=== PATIENT | female | born 1955 | race Caucasian/White ===

== ENCOUNTER 2024-09-20 08:30 | Outpatient (AMB) | payer MEDICARE, SELFPAY ==
--- OUTSIDE RECORDS SUMMARY | 2024-09-20 08:35 | XMS_ITS | Patient Health Record ---
Author Organization [facility] Address [address] [place] [address] Care Team Providers Care Pipe Bending Machine Operator Name Role Phone Ida Virk Primary Care Provider Benito Moses Unavailable [phone] Allergies No Known Allergies Reason For Referral No Information Medications Medication SIG (Take, Route, Frequency, Duration) Notes Start Date End Date Status Fluticasone Propionate 50 MCG/ACT Nasal; Duration: 30 Days Active Contour Test - USE TO TEST 3 TIMES DAILY In Vitro; Duration: 90 Active HumaLOG KwikPen 100 UNIT/ML Subcutaneous ; Duration: 107 Days Active Gabapentin 600 MG 2 tablet Orally Once a day Active Carvedilol 25 MG Oral; Duration: 90 Days Active Insulin Aspart FlexPen 100 UNIT/ML INJECT 12 UNITS UNDER THE SKIN THREE TIMES DAILY DIRECTED Subcutaneous; Duration: 71 Active hydroCHLOROthiazide 12.5 MG Oral; Durati on: 90 Days Active iron Active Trulicity Not-Taking Lantus SoloStar 100 UNIT/ML INJECT 68 UN ITS UNDER THE SKIN DAILY Subcutaneous; Duration: 84 Active DULoxetine HCl 30 MG TAKE 1 CAPSULE BY MOUTH DAILY FOR 360 DAYS. Oral Once a day Not-Taking Vitamin B 12 Active ZyrTEC Allergy PRN Activ e amLODIPine Besylate 5 MG Oral; Duration: 90 Days Active Atorvastatin Calcium 40 MG Oral; Duratio n: 90 Days Active Valsartan 160 MG Oral; Duration: 90 Days Active metFORMIN HCl 500 MG 1 tablet with a meal Orally Once a day Active Immunizations Vaccine Route Administration Date Status Comme nts COVID-19 Moderna Vaccine Unknown 03/25/2021 Administere d 1st 06/10/2020 2nd 07/18/2020 Influenza Unknown 12/23/2014 Administered Influenza Unknown 10/27/2015 Pending Influenza Unknown 11/19/2016 Administered Influenza Unknown 03/01/2018 Administered Influenza Unknown 11/19/2021 Administered Influenza Unknown 12/20/2022 Administered Pneumococcal Unknown 11/26/2013 Administered Social History Tobacco Use: Social History Observation Description Date Details (start date - stop date) Never Smoker NA - NA Tobacco Use/Smoking Question Answer Notes Are you a: nonsmoker Additional Findings: Tobacco Non-User Current no n-smoker Alcohol Screen Question Answer Notes Did you have a drink containing alcohol in the p ast year? No Points 0 Interpretation Negative Tobacco use other than smoking: Question Answer Notes Are you an other tobacco user? 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 to breakdown of skin (L97.521) Active confirmed Problem Polyneuropathy due to diabetes mellitus type I (905813752) Type 1 diabetes mellitus with diabetic polyneuropathy (E10.42) Active confirmed Encounters Encounter Location Date Provider Diagnosis [facility] [address] [address] 11/29/2023 Benito Guy Plan Of Treatment Pending Test Test Name Order Date X ray : Foot, left 2V 12/08/2017 X ray : Foot, right 2V 12/08/2017 [id number]-SJVFSIJ NAIL, 6 OR MORE 09/15/2017 91815-JZFDYWL NAIL, 6 OR MORE 06/30/2017 94105-TYWXNCX NAIL, 6 OR MORE 12/08/2017 08779-EDQUVQJ NAIL, 6 OR MORE 03/01/2018 74091-JBIQHDK NAIL, 6 OR MORE 04/22/2011 04493-DTVGTVH NAIL, 6 OR MORE 10/14/2011 29998-VPPAMIS NAIL, 6 OR MORE 05/04/2012 46881-WSYZCHS NAIL, 6 OR MORE 06/06/2014 96259-GNIALEA NAIL, 6 OR MORE 11/20/2014 97474-XZRTGAJ NAIL, 6 OR MORE 06/19/2015 24331-EBMIXFC NAIL, 6 OR MORE 10/27/2015 83243-UESTUBS NAIL, 6 OR MORE 01/26/2016 81479-KWONMLE NAIL, 6 OR MORE 04/26/2016 42037-LCMXQJC NAIL, 6 OR MORE 07/12/2016 26181-BSVPROH NAIL, 6 OR MORE 10/25/2016 29266-AJJYMWA NAIL, 6 OR MORE 01/17/2017 76805-LOAUKVE NAIL, 6 OR MORE 04/07/2017 00563-Jmzquqsn Plate 06/30/2017 10320-Tvwurvad Plate 07/12/2016 39072-Hvditozv Plate 10/25/2016 28446-Oofwdgbi Plate 06/06/2014 32912-Tlbnigek Plate 04/26/2016 12673-Gibxshtd Plate 10/27/2015 66147-Wognkfrf Plate 06/19/2015 56723-Opticrol Plate 11/20/2014 70654-Vahbvfgt Plate 03/01/2018 67295-Pfpcsvvc Plate 09/15/2017 32109 I&D ABSCESS- SIMPLE,SINGLE 017 98914-EFUX SKIN LESIONS, OVER 4 07/01/19 18 25577-DVTO SKIN LESIONS, OVER 4 04/07/19 18 80115-PIUI SKIN LESIONS, OVER 4 01/18/20 17 36485-GGXB SKIN LESIONS, OVER 4 04/26/19 17 65721-PRBQ SKIN LESIONS, OVER 4 10/26/19 17 94073-KMII SKIN LESIONS, OVER 4 06/19/19 16 70692-YKJU SKIN LESIONS, OVER 4 10/27/19 16 05057-OCXA SKIN LESIONS, OVER 4 01/26/20 16 42185-QFIP SKIN LESIONS, OVER 4 06/07/19 15 52092-URMH SKIN LESIONS, OVER 4 05/04/19 13 92013-VGCF SKIN LESIONS, OVER 4 10/14/19 12 36837-CKYL SKIN LESIONS, OVER 4 04/22/19 12 33247-PQAE SKIN LESIONS, OVER 4 09/16/19 18 22102-TDOC SKIN LESIONS, OVER 4 12/09/19 18 26623-GNTP SKIN LESIONS, OVER 4 08/31/19 19 18558-OAPW SKIN LESIONS, OVER 4 11/23/19 19 49654-ABCC SKIN LESIONS, OVER 4 04/02/19 20 07616-NXXZ SKIN LESIONS, OVER 4 10/10/19 20 69531-ESHY SKIN LESIONS, OVER 4 02/11/20 20 34218-IKFA SKIN LESIONS, OVER 4 05/12/19 21 30662-HGJF SKIN LESIONS, OVER 4 07/29/19 21 93131-IARY SKIN LESIONS, OVER 4 10/23/19 21 09758-QAVQ SKIN LESIONS, OVER 4 04/02/19 22 37385-VYYJ SKIN LESIONS, OVER 4 07/09/19 22 06935-QJQC SKIN LESIONS, OVER 4 08/29/19 24 49755-IFXV SKIN LESIONS, 2 TO 4 03/01/20 18 10782-XXWZ SKIN LESIONS, 2 TO 4 06/01/19 19 56828-IEAQ SKIN LESIONS, 2 TO 4 11/21/19 15 73259-IBAD SKIN LESIONS, 2 TO 4 07/13/19 17 Insurance Providers Payer Name Payer Address Payer Phone Subscriber Number Group Number Insured Name Patient Relationship to Insured Coverage Start Date Coverage End Date Medicare National [employer]t [employer] [address] [facility] [place] [address] [id number] Adri Strange Self - patient is the insured [employer] [address] [place] [address] [id number] Adri Starnge Self - patient is the insured Medical (General) History Medical History History ICD Code hypertension chicken pox Cholesterol back, hip, knee pain type II diabetes Surgical History Surgery Date(Month/Year) carpal tunnel surgery 1979 section 1979 cyst removal 2004, 2005 ear surgery 1977 cataract surgery- rt- and lt 10-21,11-02 Ingrown Toe Nail 2023
--- OUTSIDE RECORDS SUMMARY | 2024-09-20 08:35 | XMS_ITS | Clinical Summary ---
Author Organization [address] Address [address] [place] [phone] Phone Care Team Providers Care Supervisor [employer] Name Role Phone Ida Virk MD Primary Care Provider [phone] Allergies No known active allergies Medications aspirin 81 mg chewable tablet Chew 1 tablet (81 mg total) 1 (one) time each day. Active cholecalciferol (VITAMIN D-3) 50 mcg (2,000 unit) tablet Take 1 tablet (2,000 Units total) by mouth 1 (one) time each day. 4 Active fluticasone propionate (FLONASE) 50 mcg/actuation nasal spray Administer 2 sprays into each nostril 1 (one) time each day. 4 Active pen needle, diabetic (BD Ultra-Fine Short Pen Needle) 31 gauge x 5/16 needle 1 each 4 (four) times a day. With Insulin use 0 Active lancets lancets 1 each 3 (three) times a day. Microlet lancets 3 Active td-zpy-WH-vit F-vywpnp-unowml t (PreserVision AREDS 2 Plus MV) 200 mcg-15 mcg- 5 mg-1 mg capsule Take by mouth. Activ e gabapentin (NEURONTIN) 600 mg tablet TAKE 1 TABLET IN THE MORNING, 1 TABLET IN AFTERNOON AND 1 TABLET IN THE EVENING WITH ADDITIONAL 100 MG CAPSULE WITH EVENING DOSE 270 tablet 1 5 Active valsartan (DIOVAN) 160 mg tablet TAKE 1 TABLET AT BEDTIME 90 tablet 3 5 Active amLODIPine (NORVASC) 5 mg tablet TAKE 1 TABLET AT BEDTIME 90 tablet 1 5 Active hydroCHLOROthia zide 12.5 mg tablet TAKE 1 TABLET DAILY 90 tablet 1 5 Active Lantus Solostar U-100 Insulin 100 unit/mL (3 mL) injection pen Inject 40 Units under the skin at bedtime. 30 mL 5 Active carvediloL (COREG) 25 mg tablet TAKE 1 TABLET TWICE A DAY WITH MEALS 180 tablet 3 5 Active metFORMIN (GLUCOPHAGE) 1,000 mg tablet TAKE 1 TABLET TWICE A DAY WITH MEALS 180 tablet 3 5 Active atorvastatin (LIPITOR) 40 mg tablet Take 1 tablet (40 mg total) by mouth at bedtime. 90 tablet 1 5 Active Active Problems Problem Noted Date Diagnosed Date Cognitive impairment 04/03/2024 Type 2 diabetes mellitus wit h diabetic polyneuropathy, with long-term current use of insulin ([facility] V24, [facility] V28) 01/18/2024 02/11/2020 Severe obesity (BMI 35.0-39. 9) with comorbidity ([facility] V24, [facility] V28) 12/16/2021 Vitamin D insufficiency 12/07/2021 Splenic calcification 08/08/2020 Chronic bilateral low back pain without sciatica 08/08/2020 Bilateral carpal tunnel syndrome 08/08/2020 Gallstone 07/13/2020 Overview (01/18/2024): 06/2020-incidental finding on lumbar x-ray, partially calcified gallstone. Splenic artery aneurysm ([facility] V24) 07/13/2020 Overview (01/18/2024): 06/2020-incidental finding on lumbar x-ray. Neuropathy 02/11/2020 B12 deficiency 12/18/2019 Fibroid 11/18/2015 Overview (01/18/2024): On back xray at [facility] 06/2020-incidental finding of? Calcified uterine fibroids on lumbar x-ray Osteoarthritis, knee 07/24/2010 Hypertension 12/10/2005 Pure hypercholesterolemia 12/10/2005 Resolved Problems Problem Noted Date Diagnosed Date Resolved Date Positive colorectal cancer s creening using Cologuard test 08/16/2023 04/03/2024 Encounters Date Type Department Care Team Description 08/08/2024 8:00 AM EDT Office Visit [address] [phone] Jessie Whitten PA Encounter for annual wellness visit (AWV) in Medicare patient (Primary Dx); Primary hypertension; B12 deficiency; Pure hypercholesterolemia ; Severe obesity (BMI 35.0-39.9) with comorbidity ([facility] V24, [facility] V28); Type 2 diabetes mellitus with diabetic polyneuropathy, with long-term current use of insulin ([facility] V24, [facility] V28); Vitamin D insufficiency; Splenic artery aneurysm ([facility] V24) 08/01/2024 10:15 AM EDT - 08/01/2024 11:59 PM EDT Hospital Encounter [address] [phone] Chronic low back pain without sciatica, unspecified back pain laterality Discharge Disposition: Home or Self Care 08/01/2024 8:00 AM EDT Office Visit [address] [phone] Jessie Whitten PA Chronic low back pain without sciatica, unspecified back pain laterality (Primary Dx); Medial epicondylitis, right from Last 3 Months Immunizations Name Administration Dates Next Due COVID-19 (Moderna/Spikevax) 12yo and older 01/05/2023 Influenza Quadravalent, 0.5m l (Fluzone High-dose) 65yo and older 12/16/2021 Influenza Quadravalent, MDCK , 0.5ml, preservative free (Flucelvax) 6mo and older 01/02/2018 Influenza Quadravalent, MDCK , 0.5ml, with preservative (Flucelvax) 6mo and older 11/25/2016 Influenza Quadrivalent, 0.5m l, preservative free (Fluarix; FluLaval; Fluzone) ages 6mo and older (Afluria) 3yo and older 01/28/2021,12/19/2019,11/29/2018 Influenza trivalent, 0.5mL ( Fluad) 65yo and older 04/03/2024,11/29/2023,12/14/2022,12/16,12/16/2021 Influenza trivalent, 0.5mL ( Fluzone High-dose) 65yo and older 11/29/2023,12/14/2022,12/16/2021 Influenza trivalent, 0.5mL, preservative free (Fluarix; FluLaval; Fluzone) ages 6mo and older (Afluria) 3 years and older 12/20/2022,11/19/2021,01/28/2021,12/18,11/29/2018,03/01/2018,11/19/2016 ,03/17/2016,12/09/2014,12/28/2013,01/19,02/17/2011,01/12/2010, 8,01/16/2007 Influenza trivalent, with pr eservative (Fluzone; Afluria) 6mo and older 03/17/2016,12/09/2014,12/28/2013,02/03,02/17/2011,01/12/2010,12/15/2007 ,01/16/2007 Influenza, live, intranasal, trivalent (FluMist) 2yo to less than 50yo 12/23/2014 Moderna (age 6mo & older) Bi valent, COVID-19, 0.5 mL or 0.25 mL dosage 09/15/2022,12/24/2021 Moderna SARS-CoV-2 COVID-19, mRNA, LNP-S, preservative free 03/25/2021 Pneumococcal conjugate 13 va lent (Prevnar 13, PCV13) 2mo and older 12/16/2021 Pneumococcal conjugate 20 va lent (Prevnar 20, PCV 20) 2mo and older 01/05/2023 Pneumococcal polysaccharide 23 valent (Pneumovax 23) 2yo and older 11/26/2013,12/15/2007 RSV, bivalent, protein subun it RSVpreF, 0.5mL, Preservative Free (Arexvy) 60yo and older 01/05/2023 Respiratory syncytial virus (RSV), unspecified 01/05/2023 Td Tetanus diptheria (Tdvax) 7yo and older 02/15/2018 Tdap Tetanus diptheria acell ular pertussis (Boostrix; Adacel) 7yo and older 01/29/2008 Zoster Live 10/18/2016 Zoster recombinant (Shingrix ) 19yo and older 01/01/2023,11/18/2020 Surgical History Surgery Date Site/Laterality Comments COLONOSCOPY 09/03/11 [facility] normal; repeat in ten yrs CARPAL TUNNEL RELEASE - Bilateral CATARACT EXTRACTION 2015 Bilateral OTHER SURGICAL HISTORY 1976 Right EAR SURGERY SHOULDER SURGERY Right shoulder mass removal COLONOSCOPY 10/12/2023 2 polyps, repeat 5 years Medical History Medical History Date Comments Pure hypercholesterolemia 12/10/2005 Essential hypertension, benign 12/10/2005 Osteoarthritis, knee 07/24/2010 Hypertension 12/10/2005 B12 deficiency 12/18/2019 Gallstone 07/13/202006/2020-incidenta l finding on lumbar x-ray, partially calcified gallstone. Splenic artery aneurysm ([facility] V24) 07/13/202006/2020-incidental finding on lumbar x-ray. Chronic bilateral low back p ain without sciatica 08/08/2020 Bilateral carpal tunnel syndrome 08/08/2020 Vitamin D insufficiency 12/07/2021 Type 2 diabetes mellitus wit h diabetic polyneuropathy, with long-term current use of insulin ([facility] V24, [facility] V28) 01/18/2024 Family History Medical History Relation Name Comments Arthritis Father [place], [place] Arthritis Mother [place], [place] Breast cancer Neg Hx Relation Name Status Comments Father Mother Social History Tobacco Use Types Packs/Day Years Used Date Smoking Tobacco: Never Smokeless Tobacco: Never Tobacco Cessation:Counseling Given: Not Answered Alcohol Use Standard Drinks/Week Comments No 0 (1 standard drink = 0.6 oz pur e alcohol) Housing Instability Answer Date Recorde d Are you worried that in the next 2 months you may not have stable housing? No 08/08/2024 Food Access & Nutrition Answer Date Rec orded Do you have access to a vari ety of food including fruits and vegetables? Yes 08/08/2024 Access to Healthcare Answer Date Record ed Within the last 3 months, ho w many times did you visit the emergency department for your medical care? 0 08/08/2024 Health Literacy Answer Date Recorded How often do you need to hav e someone help you when you read instructions, pamphlets, or other written material from your doctor or pharmacy? Often 08/08/2024 Caregiver: How often do you need to have someone help you when you read instructions, pamphlets, or other written material from your doctor or pharmacy? Not on file 08/08/2024 Financial Risk Answer Date Recorded How hard is it for you to pa y for the very basics like food, housing, medical care, and air conditioning / heating? Not very hard 08/08/2024 Transportation Answer Date Recorded Has the lack of transportati on kept you from meetings, work, or from getting things needed for daily living? No Has the lack of transportati on kept you from medical appointments or from getting medications? No 08/08/2024 Food Risk Answer Date Recorded Within the past 12 months we worried whether our food would run out before we got money to buy more. Never true 08/08/2024 Within the past 12 months th e food we bought just didn't last and we didn't have money to get more. Never true 08/08/2024 Dependent Care Answer Date Recorded Do you need help finding or paying for care for your loved ones. For example, child adolescent care or elderly care for an older adult? No 08/08/2024 Education Answer Date Recorded Do you think completing more education or training, like finishing a GED, going to college, or learning a trade, would be helpful for you? No 08/08/2024 Employment and Income Answer Date Recor ded During the last four weeks, have you been actively looking for work? No 08/08/2024 Living Situation Answer Date Recorded What is your living situation? 0 08/08/2024 Comments Unknown Sex and Gender Information Value Date Recorded Sex Assigned at Female 08/10/2024 1:14 PM EDT Legal Sex Female 3:24 PM EST Gender Identity Female 08/10/2024 1:14 PM EDT Sexual Orientation Straight 08/10/2024 1: 14 PM EDT Obstetrics History Last Filed Vital Signs Vital Sign Reading Time Taken Comments Blood Pressure 128/70 08/08/2024 7:49 AM EDT Pulse 64 08/08/2024 7:49 AM EDT Temperature 36.4 C (97.6 F) 08/08/2024 7:49 AM EDT Respiratory Rate 16 08/08/2024 7:49 AM EDT Oxygen Saturation 98% 08/08/2024 7:49 AM EDT Inhaled Oxygen Concentration - - Weight 103 kg (226 lb 6.4 oz) 08/08/2024 7:49 AM EDT Height 157.5 cm (5' 2 ) 08/08/2024 7:49 AM EDT Body Mass Index 41.41 08/08/2024 7:49 AM EDT Plan of Treatment Upcoming Encounters Date Type Department Care Team (Late st Contact Info) Description 10/12/2024 2:30 PM EDT Consult Vascular Surgery - [place] [address] [place] [phone] [facility] [address] [facility] [address] [place] [address] 11/28/2024 11:15 AM EDT Office Visit Adult Medicine [facility] [address] [place] [phone] Ida Virk MD [address] [place] [phone] Health Maintenance Due Date Last Done Comments Diabetes: Annual Retina Eye Exam 02/26/1966 Breast Cancer Screening 09/29/2022 09/30/19, 04/16/2019, 04/11/2018, Additional history exists COVID-19 Vaccine ( season) 2023 01/05/2023, 09/15/2022, 12/24/2021, Additional history exists Falls Risk Assessment 07/25/2024 07/26/2023 Diabetes: Annual Foot Exam 08/28/2024 08/29/2023 Diabetes: Blood Sugar Control Test (HGBA1C) 02/01/2025 08/01/2024, 04/03/2024, 11/30/2023, Additional history exists Diabetes: Annual Urine Albumin-Creatinine Ratio (uACR) 08/01/2025 08/01/2024, 04/03/2024, 07/26/2023 Diabetes: Annual GFR (Glomerular Filtration Rate) 08/01/2025 08/01/2024, 11/30/2023 Hypertension/CHF/CAD Annual BMP Blood Test 08/01/2025 08/01/2024, 11/30/2023 Depression Screening 08/08/2025 08/08/2024, 07/26/19 Medicare Annual Wellness Visit 08/08/2025 08/08/2024 Social Influencers of Health Screening 08/08/2025 08/08/2024 DTaP,Tdap,and Td Vaccines (3 - Td or Tdap) 02/16/2028 02/15/2018, 01/29/2008 Colorectal Cancer Screening: Colonoscopy 10/11/2028 Cholesterol Screening (Lipid Panel) 11/29/2028 11/30/2023 Osteoporosis Screening (Bone Density Screening) 12/05/2031 12/04/2021 Hepatitis C Screening Completed 08/07/2014 Zoster Vaccines Completed 01/01/2023, 10/21, 10/18/2016 Pneumococcal Vaccine: 50+ Years Completed 01/05/2023, 12/16/2021, 11/26/2013, Additional history exists RSV Immunization Adult Patients Completed 01/05/2023, 01/05/2023 RSV Immunization Patients Under 20 months Aged Out 01/05/2023 No longer eligible based on patient's age to complete this topic Colorectal Cancer Screening: FIT-DNA (Cologuard) Discontinued 08/08/2023 Influenza Vaccine Completed 04/03/2024, , 11/29/2023, Additional history exists HIB Vaccines Aged Out No longer eligi ble based on patient's age to complete this topic HPV Vaccines Aged Out No longer eligi ble based on patient's age to complete this topic Hepatitis A Vaccines Aged Out No long er eligible based on patient's age to complete this topic Hepatitis B Vaccines Aged Out No long er eligible based on patient's age to complete this topic IPV Vaccines Aged Out No longer eligi ble based on patient's age to complete this topic MMR Vaccines Aged Out No longer eligi ble based on patient's age to complete this topic Meningococcal ACWY Vaccine Aged Out N o longer eligible based on patient's age to complete this topic Meningococcal B Vaccine Aged Out No l onger eligible based on patient's age to complete this topic Varicella Vaccines Aged Out No longer eligible based on patient's age to complete this topic Procedures Procedure Name Priority Date/Time Associated Diagnosis Comments XR LUMBAR SPINE 4+ VIEWS Routine 08/01/2024 10:32 AM EDT Chronic low back pain without sciatica, unspecified back pain laterality CBC WITH AUTO DIFFERENTIAL Routine 08/01/2024 9:01 AM EDT B12 deficiency Vitamin D insufficiency Type 2 diabetes mellitus with diabetic polyneuropathy, with long-term current use of insulin ([facility] V24, [facility] V28) HEMOGLOBIN A1C Routine 08/01/2024 9:01 AM EDT B12 deficiency Vitamin D insufficiency Type 2 diabetes mellitus with diabetic polyneuropathy, with long-term current use of insulin ([facility] V24, [facility] V28) MICROALBUMIN CREATININE URINE RATIO Routine 08/01/2024 9:01 AM EDT B12 deficiency Vitamin D insufficiency Type 2 diabetes mellitus with diabetic polyneuropathy, with long-term current use of insulin ([facility] V24, [facility] V28) COMPREHENSIVE METABOLIC PANEL Routine 08/01/2024 9:01 AM EDT B12 deficiency Vitamin D insufficiency Type 2 diabetes mellitus with diabetic polyneuropathy, with long-term current use of insulin ([facility] V24, [facility] V28) CBC AND DIFFERENTIAL Routine 08/01/2024 9:01 AM EDT B12 deficiency Vitamin D insufficiency Type 2 diabetes mellitus with diabetic polyneuropathy, with long-term current use of insulin ([facility] V24, [facility] V28) VITAMIN D 25 HYDROXY Routine 08/01/2024 9:01 AM EDT B12 deficiency Vitamin D insufficiency Type 2 diabetes mellitus with diabetic polyneuropathy, with long-term current use of insulin ([facility] V24, [facility] V28) VITAMIN B12 Routine 08/01/2024 9:01 AM EDT B12 deficiency Vitamin D insufficiency Type 2 diabetes mellitus with diabetic polyneuropathy, with long-term current use of insulin ([facility] V24, [facility] V28) DXA BONE DENSITY STUDY 1+ SITS AXIAL SKEL Routine 12/04/2021 9:22 AM EDT Unspecified menopausal and perimenopausal disorder SCREENING MAMMOGRAPHY BI 2-VIEW BREAST INC CAD Routine 09/29/2021 7:50 AM EDT Encounter for screening mammogram for malignant neoplasm of breast from Last 3 Months or Most Recently Relevant to Health Maintenance Results * XR Lumbar Spine 4+ Views (08/01/2024 10:32 AM EDT) Anatomical Region Laterality Modality Spine, L-spine Radiographic Noa ging 08/01/2024 12:1 4 PM EDT Impressions 08/01/2024 12:33 PM EDT Progression of levoscoliosis of the lumbar spine. Grade 1-2 spondylolisthesis at L4-5 has progressed. Grade 1 spondylolisthesis at L5-S1 has progressed. Multilevel spondylosis, this has progressed since the previous study, particularly at L2-3. -------- FINAL REPORT -------- Dictated By: Yulissa Dodson Dictated Date: 08/01/2024 12:14 ET Assigned Physician: Yulissa Dodson Reviewed and Electronically Signed By: Yulissa Dodson Signed Date: 08/01/2024 12:33 ET Workstation ID: [id number] Transcribed By: Self Edit Transcribed Date: 08/01/2024 12:14 ET Narrative 08/01/2024 12:33 PM EDT LUMBOSACRAL SPINE, 4 VIEWS INCLUDING OBLIQUES HISTORY: Pain. Prior: Lumbar spine . FINDINGS: There is mild rotatory levoscoliosis of the lumbar spine, and this has progressed since the previous study. There is 8 mm anterolisthesis of L4 on L5 and 4 mm anterolisthesis of L5 on S1. No fractures are seen. There is severe decreased disc height with endplate spurring, subchondral sclerosis and disc desiccation at L2-3, and this has progressed. There is endplate spurring at every level. There is decreased disc height at L3-for, L4-5, and L5-S1. There is facet hypertrophy of the lower lumbar spine. Eggshell calcification consistent with gallstone in the upper quadrant is again noted. Coarse calcifications in the pelvis consistent with uterine fibroids are again noted. There is advanced atherosclerosis. Procedure Note Yulissa Dodson MD - 08/01/2024 LUMBOSACRAL SPINE, 4 VIEWS INCLUDING OBLIQUES HISTORY: Pain. Prior: Lumbar spine . FINDINGS: There is mild rotatory levoscoliosis of the lumbar spine, and this hasprogressed since the previous study. There is 8 mm anterolisthesis of L4on L5 and 4 mm anterolisthesis of L5 on S1. No fractures are seen. There is severe decreased disc height with endplate spurring, subchondralsclerosis and disc desiccation at L2-3, and this has progressed. There isendplate spurring at every level. There is decreased disc height atL3-for, L4-5, and L5-S1. There is facet hypertrophy of the lower lumbar spine. Eggshell calcification consistent with gallstone in the upper quadrant isagain noted. Coarse calcifications in the pelvis consistent with uterine fibroids areagain noted. There is advanced atherosclerosis. IMPRESSION: Progression of levoscoliosis of the lumbar spine. Grade 1-2 spondylolisthesis at L4-5 has progressed. Grade 1 spondylolisthesis at L5-S1 has progressed. Multilevel spondylosis, this has progressed since the previous study,particularly at L2-3. -------- FINAL REPORT -------- Dictated By: Yulissa Dodson Dictated Date: 08/01/2024 12:14 ET Assigned Physician: Yulissa Dodson Reviewed and Electronically Signed By: Yulissa Dodson Signed Date: 08/01/2024 12:33 ET Workstation ID: [id number] Transcribed By: Self Edit Transcribed Date: 08/01/2024 12:14 ET us Jessie COREA IMG XR PROCEDURES Final Resul t * CBC auto differential (08/01/2024 9:01 AM EDT) [facility] WBC 8.1 4.8 - 10.8 K/mcL LAB HEMETOLOGY METHOD 08/01/2024 12:57 PM EDT [facility] RBC 4.40 3.80 - 4.80 M/mcL LAB HEMETOLOGY METHOD 08/01/2024 12:57 PM EDT [facility] Hemoglobin 13.0 11.5 - 16.0 g/dL LAB HEMETOLOGY METHOD [facility] Hematocrit 39.9 35.0 - 47.0 % LAB HEMETOLOGY METHOD 08/01[facility]2024 12:[facility] MCV 91.1 79.0 - 98.0 FL LAB HEMETOLOGY METHOD 08/01/2024 12:57 PM EDT [facility] MCH 29.7 27.0 - 32.0 pcg LAB HEMETOLOGY METHOD 08/01/2024 12:[facility] MCHC 32.6 32.0 - 37.0 g/dL LAB HEMETOLOGY METHOD 08/01/2024 12:57 [facility] RDW 13.2 11.0 - 15.0 % LAB HEMETOLOGY METHOD 08/01/2024 12:57 PM EDT [facility] Platelets 271 130 - 400 K/mcL LAB HEMETOLOGY METHOD 08/01/2024 12:57 PM EDT [facility] MPV 10.7 7.0 - 11.0 FL LAB HEMETOLOGY METHOD 08/01/2024 12:57 [facility] NRBC 0.0 <1.0 % LAB HEMETOLOGY METHOD 08/01/2024 12:57 PM EDT [facility] NRBC Absolute 0.00 <0.10 K/mcL LAB HEMETOLOGY METHOD 08/01/2024 12:57 PM EDT [facility] Neutrophils Relative 71.8 % LAB HEMETOLOGY METHOD 08/01/2024 12:57 [facility] Lymphocytes Relative 20.1 % LAB HEMETOLOGY METHOD 08/01/2024 12:57 [facility] Monocytes Relative 6.7 % LAB HEMETOLOGY METHOD 08/01/2024 12:57 [facility] Eosinophils Relative 0.5 % LAB HEMETOLOGY METHOD 08/01/2024 12:57 PM [facility] Basophils Relative 0.5 % LAB HEMETOLOGY METHOD 08/01/2024 12:57 PM [facility] Immature Granulocytes Relative 0.4 % LAB HEMETOLOGY METHOD 08/01/2024 12:57 PM [facility] Neutrophils Absolute 5.81 1.50 - 7.00 K/mcL LAB HEMETOLOGY METHOD 08/01/2024 12:57 PM [facility] Lymphocytes Absolute 1.63 1.00 - 5.00 K/mcL LAB HEMETOLOGY METHOD 08/01/2024 12:57 PM [facility] Monocytes Absolute 0.54 0.20 - 1.00 K/mcL LAB HEMETOLOGY METHOD 08/01/2024 12:57 PM [facility] Eosinophils Absolute 0.04 0.00 - 0.50 K/mcL LAB HEMETOLOGY METHOD 08/01/2024 12:57 PM [facility] Basophils Absolute 0.04 0.00 - 0.20 K/mcL LAB HEMETOLOGY METHOD 08/01/2024 12:57 PM [facility] Immature Granulocytes Absolute 0.03 0.00 - 0.03 K/mcL LAB HEMETOLOGY METHOD 08/01/2024 12:57 PM EDT [facility] Blood Venous blood specimen / Unknown Venipuncture / Unknown 08/01/2024 9:01 AM EDT 08/01/2024 9:01 AM EDT us Jessie COREA LAB BLOOD ORDERABLES Final Re sult [facility] [address] [place] [address], [place] [phone] * (ABNORMAL) Microalbumin creatinine urine ratio (08/01/2024 9:01 AM EDT) Creatinine, Urine 159.0 mg/dL LAB CHEMISTRY METHOD 08/01/2024 11:50 AM EDT [facility] Microalb, Ur 35.5(H) 0.0 - 29.0 mg/L LAB CHEMISTRY METHOD 08/01/2024 11:50 AM EDT [facility] Microalb/Crea t Ratio 22 <30 mg/g creat LAB CHEMISTRY METHOD 08/01/2024 11:50 AM EDT [facility] Urine Urine specimen from urethra / Unknown Non-blood Collection / Unknown 08/01/2024 9:01 AM EDT 08/01/2024 9:01 AM EDT us Jessie COREA LAB URINE ORDERABLES Final Re sult [facility] [address] [place] [address], [place] [phone] * Vitamin D 25 hydroxy (08/01/2024 9:01 AM EDT) Vit D, 25-Hydroxy 45.5 30.0 - 80.0 ng/mL LAB CHEMISTRY METHOD 08/01/2024 12:34 PM EDT [facility] Blood Venous blood specimen / Unknown Venipuncture / Unknown 08/01/2024 9:01 AM EDT 08/01/2024 9:01 AM EDT us Jessie COREA LAB BLOOD ORDERABLES Final Re sult [facility] [address] [place] [address], [place] [phone] * (ABNORMAL) Hemoglobin A1c (08/01/2024 9:01 AM EDT) Pathologist [facility] Hemoglobin A1C 6.6(H) <6.5 % LAB CHEMISTRY METHOD 08/01/2024 2:47 PM EDT [facility] Mean Bld Glu Estim. 143 mg/dL LAB CHEMISTRY METHOD 08/01/2024 2:47 PM EDT [facility] Blood Venous blood specimen / Unknown Venipuncture / Unknown 08/01/2024 9:01 AM EDT 08/01/2024 9:01 AM EDT us Jessie COREA LAB BLOOD ORDERABLES Final Re sult Performing Organization Address [facility]/ZIP Co de Phone Number [facility] [address] [place] [address], [place] [phone] * (ABNORMAL) Vitamin B12 (08/01/2024 9:01 AM EDT) Pathologist [facility] Vitamin B-12 1,842(H) 250 - 900 pcg/mL LAB CHEMISTRY METHOD 08/01/2024 11:37 AM EDT [facility] Blood Venous blood specimen / Unknown Venipuncture / Unknown 08/01/2024 9:01 AM EDT 08/01/2024 9:01 AM EDT us Jessie COREA LAB BLOOD ORDERABLES Final Re sult [facility] [address] [place] [address], [place] [phone] * (ABNORMAL) Comprehensive metabolic panel (08/01/2024 9:01 AM EDT) Sodium 141 133 - 145 mmol/L LAB CHEMISTRY METHOD 08/01/2024 11:14 AM [facility] Potassium 3.4(L) 3.5 - 5.5 mmol/L LAB CHEMISTRY METHOD 08/01/2024 11:14 AM [facility] Chloride 102 96 - 110 mmol/L LAB CHEMISTRY METHOD 08/01/2024 11:14 AM [facility] CO2 34(H) 21 - 32 mmol/L LAB CHEMISTRY METHOD 08/01/2024 11:14 AM [facility] Anion Gap 5 3 - 11 LAB CHEMISTRY METHOD 08/01/2024 11:14 AM [facility] Glucose 90 70 - 100 mg/dL LAB CHEMISTRY METHOD 08/01/2024 11:14 AM [facility] BUN 18 5 - 25 mg/dL LAB CHEMISTRY METHOD 08/01/2024 11:14 AM [facility] Creatinine 0.88 0.50 - 1.10 mg/dL LAB CHEMISTRY METHOD 08/01/2024 11:14 AM [facility] eGFR 72 >=60 mL/min/1. 73m2 LAB CHEMISTRY METHOD 08/01/2024 11:14 AM [facility] Comment:Calculation based on the Chronic Kidney Disease Epidemiology Collaboration (CKD-EPI) equation refit without adjustment for race. BUN/Creatinine Ratio 20.5 LAB CHEMISTRY METHOD 08/01/2024 11:14 AM [facility] Calcium 10.4 8.5 - 10.5 mg/dL LAB CHEMISTRY METHOD 08/01/2024 11:14 AM [facility] AST (SGOT) 21 10 - 42 unit/L LAB CHEMISTRY METHOD 08/01/2024 11:14 AM EDT [facility] ALT (SGPT) 33 10 - 60 unit/L LAB CHEMISTRY METHOD 08/01/2024 11:14 AM EDT [facility] Alkaline Phosphatase 59 42 - 121 unit/L LAB CHEMISTRY METHOD 08/01/2024 11:14 AM EDT [facility] Total Protein 7.5 6.0 - 8.0 g/dL LAB CHEMISTRY METHOD 08/01/2024 11:14 AM EDT [facility] Albumin 4.1 3.2 - 5.0 g/dL LAB CHEMISTRY METHOD 08/01/2024 11:14 AM EDT [facility] Total Bilirubin 0.6 0.0 - 1.4 mg/dL LAB CHEMISTRY METHOD 08/01/2024 11:14 AM EDT [facility] Blood Venous blood specimen / Unknown Venipuncture / Unknown 08/01/2024 9:01 AM EDT 08/01/2024 9:01 AM EDT us Jessie COREA LAB BLOOD ORDERABLES Final Re sult [facility] [address] [place] [address], * DXA BONE DENSITY STUDY 1+ SITS AXIAL SKEL (12/04/2021 9:22 AM EDT) Anatomical Region Laterality Modality Bone Densitometr y 08/03/2021 11:4 0 AM EDT Narrative 12/04/2021 2:21 PM EDT BONE DENSITY Lumbar Spine T-score is +1.7 (SD relative to 20-29 y/o adult) Z-score is +3.5 (SD relative to age matched peers) This is normal by criteria defined by the WHO. Left Hip T-score is +0.3 Z-score is +1.9 This is normal by criteria defined by the WHO. Impression: Based on the World Health Organization criteria, Vineet Strange should be classified as having normal bone density. [facility] Department of Internal Medicine recommends using National Osteoporosis Foundation (NOF) guidelines in treatment decisions related to osteoporosis. NOF guidelines suggest considering treatment for postmenopausal women and men aged 50 or older presenting with the following: History of hip or vertebral fracture. T-score less than or equal to -2.5 (DXA) at the femoral neck, total hip, or spine, after appropriate evaluation to exclude secondary causes. Low bone mass (T-score between -1.0 and -2.5 at the femoral neck or spine) AND a 10-year probability of a hip fracture greater than or equal to 3% OR a 10-year probability of a major osteoporosis-related fracture greater than or equal to 20% based on the [place]-adapted WHO algorithm Please note that all treatment decisions require clinical judgment and consideration of individual patient factors, including patient preferences, co-morbidities, previous drug use, risk factors not captured in the FRAX model (e.g., frailty, falls, vitamin D deficiency, increased bone turnover, interval significant decline in bone density) and possible under- or over-estimation of fracture risk by FRAX. Procedure Note Pavel Iglesias MD - 03/09/2022 BONE DENSITY Lumbar Spine T-score is +1.7 (SD relative to 20-29 y/o adult) Z-score is +3.5 (SD relative to age matched peers) This is normal by criteria defined by the WHO. Left Hip T-score is +0.3 Z-score is +1.9 This is normal by criteria defined by the WHO. Impression: Based on the World Health Organization criteria, Vineet Strange should beclassified as having normal bone density. [facility] Department of Internal Medicine recommendsusing National Osteoporosis Foundation (NOF) guidelines in treatmentdecisions related to osteoporosis. NOF guidelines suggest consideringtreatment for postmenopausal women and men aged 50 or older presentingwith the following: History of hip or vertebral fracture. T-score less than or equal to -2.5 (DXA) at the femoral neck, total hip,or spine, after appropriate evaluation to exclude secondary causes. Low bone mass (T-score between -1.0 and -2.5 at the femoral neck or spine)AND a 10-year probability of a hip fracture greater than or equal to 3% ORa 10-year probability of a major osteoporosis-related fracture greaterthan or equal to 20% based on the [place]-adapted WHO algorithm Please note that all treatment decisions require clinical judgment andconsideration of individual patient factors, including patientpreferences, co-morbidities, previous drug use, risk factors not capturedin the FRAX model (e.g., frailty, falls, vitamin D deficiency, increasedbone turnover, interval significant decline in bone density) and possibleunder- or over-estimation of fracture risk by FRAX. Arianna COREA IMG DXA PROCEDURES Final Result * SCREENING MAMMOGRAPHY BI 2-VIEW BREAST INC CAD (09/29/2021 7:50 AM EDT) Anatomical Region Laterality Modality Radiographic Noa ging 06/10/2021 3:34 PM EDT Narrative 09/29/2021 2:55 PM EDT This is a summary report. The complete report is available in the patient's medical record. If you cannot access the medical record, please contact the sending organization for a detailed fax or copy. Full field digital screening 2D and 3D mammography, reviewed with CAD and compared to previous mammograms of 04/16/2019, and 04/11/2018 04/07/2017.. The breasts are composed of fatty and fibroglandular tissue. No suspicious mass, architectural distortion or suspicious calcifications are identified. IMPRESSION: : No mammographic evidence of malignancy. BIRADS 1-Negative; N. 5 year breast cancer risk assessment 1.5 % Lifetime breast cancer risk assessment 5.6 % Breast cancer risk category Low (<15%) Procedure Note Yulissa Dodson MD - 03/09/2022 This is a summary report. The complete report is available in thepatient's medical record. If you cannot access the medical record, pleasecontact the sending organization for a detailed fax or copy. Full field digital screening 2D and 3D mammography, reviewed with CAD andcompared to previous mammograms of 04/16/2019, and 04/11/2018 04/07/2017..The breasts are composed of fatty and fibroglandular tissue. Nosuspicious mass, architectural distortion or suspicious calcifications areidentified. IMPRESSION: : No mammographic evidence of malignancy. BIRADS 1-Negative; N. 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
--- NOTE | 2024-09-20 08:48 | MHC.OFFVIS ---
Intake Visit Reasons: Follow up Medication List - Last Reconciled 09/20/24 by Eduardo Hebert MD amlodipine 5 mg PO DAILY aspirin 81 mg PO DAILY atorvastatin 40 mg PO DAILY carvedilol 25 mg PO BID gabapentin 600 mg PO TID hydrochlorothiazide 12.5 mg PO DAILY insulin glargine (Lantus Solostar U-100 Insulin) units subcut metformin 1,000 mg PO BID valsartan 160 mg PO DAILY Review of Systems Const Details: Constitutional:?No fever, chills, fatigue, weight loss, or night sweats. HEENT:?No headache, vision changes, hearing loss, nasal congestion, sore throat. Cardiovascular:?No chest pain, palpitations, orthopnea, PND, or leg swelling. Respiratory:?No cough, shortness of breath, wheezing, or hemoptysis. Gastrointestinal:?No nausea, vomiting, abdominal pain, diarrhea, or constipation. Genitourinary:?No dysuria, frequency, incontinence, or hematuria. Neurological:?No dizziness, syncope, seizures, numbness, tingling, weakness, tremors, memory loss. Psychiatric:?No anxiety, depression, mood swings, sleep disturbance, or hallucinations. Endocrine:?No heat/cold intolerance, polydipsia, polyuria, or hair/skin changes. Hematologic/Lymphatic:?No easy bruising, bleeding, or lymphadenopathy. Integumentary (Skin):?No rash, lesions, itching, or color changes. Allergic/Immunologic:?No seasonal allergies, hives, or recurrent infections. Physical Exam Neuro Other: Mental Status: She is alert and awake with normal spontaneity of speech fluency comprehension and affect. Mini-mental status score is 16. Cranial Nerves: CN II: Visual charlton full to confrontation, visual acuity intact. CN III, IV, : Pupils equal, round, reactive to light and accommodation. Extraocular movements are normal. CN V: Facial sensation is normal. CN VII: Facial movements symmetrical. CN VIII: Hearing intact to bedside conversation is normal. CN IX, X: Palate elevates symmetrically. CN XI: Shoulder shrug and head turn symmetrical. CN XII: Tongue midline without atrophy or fasciculations. Motor: No focal weakness. Reflexes: Deep tendon reflexes are absent. Coordination: Cavnfa-sl-ccly and oeuj-zi-yntg testing normal. No dysmetria. Gait and Station: Cautious with a cane. Sensory: Intact to light touch, pinprick, and vibration. Romberg is negative. Extrapyramidal: Full facial expressions and blinking. No rigidity. Movements are appropriate with no tremor or abnormality. Speech: Normal; no dysarthria or tremor. Assessment & Plan Assessment & Plan (1) Alzheimer dementia: Code(s): G30.9 - Alzheimer's disease, unspecified; F02.80 - Dementia in other diseases classified elsewhere, unspecified severity, without behavioral disturbance, psychotic disturbance, mood disturbance, and anxiety Category: Medical Qualifiers: Alzheimer's disease onset: early onset Dementia severity: moderate Dementia behavioral or psychological symptom: without behavioral, psychotic, or mood disturbance or anxiety Qualified Code(s): G30.0 - Alzheimer's disease with early onset; F02.B0 - Dementia in other diseases classified elsewhere, moderate, without behavioral disturbance, psychotic disturbance, mood disturbance, and anxiety Plan She probably has moderately severe Alzheimer dementia. Potentially there other possibilities including combination of vascular and Alzheimer or others. An MRI of brain without contrast is recommended with some laboratories. She was advised to not drive. Her otzxwg-lq-wqa was advised that she should not be making any financial decisions. Coding Level of Care Code New Pt Level 4 (45711) Diagnoses Moderate early onset Alzheimer's dementia without behavioral disturbance, psychotic disturbance, mood disturbance, or anxiety G30.0; F02.B0 Alzheimer's disease onset: early onset Dementia severity: moderate Dementia behavioral or psychological symptom: without behavioral, psychotic, or mood disturbance or anxiety
== END 2024-09-20 09:33 | disposition home or self-care (01) ==
PROVIDERS: PCP Internal Medicine Endocrinology, Diabetes & Metabolism; Visit Provider Psychiatry & Neurology Neurology
DX: G30.0 Alzheimer's disease with early onset (principal); F02.B0 Dementia in other diseases classified elsewhere, moderate, without behavioral disturbance, psychotic disturbance, mood disturbance, and anxiety
CPT/HCPCS: 99214

== ENCOUNTER → 2024-09-20 08:30 | Outpatient (BNVA) | payer MEDICARE, SELFPAY | PROVIDERS: PCP Internal Medicine Endocrinology, Diabetes & Metabolism; Visit Provider Psychiatry & Neurology Neurology | DX: G30.0 Alzheimer's disease with early onset (principal); F02.B0 Dementia in other diseases classified elsewhere, moderate, without behavioral disturbance, psychotic disturbance, mood disturbance, and anxiety | CPT/HCPCS: 99212 ==

== ENCOUNTER 2024-09-29 10:15 | Outpatient (REF) | payer MEDICARE, SELFPAY ==
[2024-09-29 11:56] LABS: Vitamin B12 804 pg/mL (200-900)
== END 2024-09-29 10:16 | disposition home or self-care (01) ==
LOC: HO.LAB 10:15
PROVIDERS: PCP Internal Medicine; Visit Provider Psychiatry & Neurology Neurology
DX: G30.0 Alzheimer's disease with early onset (principal); F02.B0 Dementia in other diseases classified elsewhere, moderate, without behavioral disturbance, psychotic disturbance, mood disturbance, and anxiety
CPT/HCPCS: 36415; 82607; 84443

== ENCOUNTER 2024-09-30 18:05 | Outpatient (REF) | payer MEDICARE, SELFPAY ==
--- NOTE | ~2024-09-30 | MR_ITS ---
EXAMINATION: MR BRAIN WITHOUT CONTRAST CLINICAL INFORMATION: Alzheimer's disease. COMPARISON: None available. TECHNIQUE: MRI of the brain was obtained using routine sequences without contrast. FINDINGS: Patient's motion artifact. No restricted diffusion. There is prominence of the extra-axial CSF spaces cerebral sulci involving mostly the left temporal lobe with ex vacuo dilatation of left temporal horns lateral ventricle. No restricted diffusion. No acute intracranial hemorrhage, mass effect, midline shift, hydrocephalus or herniation. Marroquin-white matter differentiation is normal. Bilateral, a few, scattered nonspecific subcortical deep white matter hyperintense T2 FLAIR signal foci. Sellar/suprasellar region demonstrated no signal abnormality or masses. Craniocervical junction demonstrates normal position of the cerebellar tonsils Flow-void signal within the main cerebral vessels is normal.. 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 Electronically signed by: Ernesto Vicente MD 10/01/2024 09:22 AM EDT
--- OUTSIDE RECORDS SUMMARY | 2024-09-30 18:07 | XMS_ITS | Patient Health Record ---
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 Role Phone Ida Virk Primary Care Provider Benito Moses Unavailable [phone] Allergies No Known Allergies Reason For Referral [...] primary osteoarthritis of the ankle and/or foot (393747494) Primary osteoarthritis, right ankle and foot (M19.071) Active confirmed Problem Localized, primary osteoarthritis of the ankle and/or foot (254188152) Primary osteoarthritis, left ankle and foot (M19.072) Active confirmed Problem Non-pressure chronic ulcer of other part of left foot limited to breakdown of skin (L97.521) Active confirmed Problem Polyneuropathy due to diabetes mellitus type I (445702387) Type 1 diabetes mellitus with diabetic polyneuropathy (E10.42) Active confirmed Encounters Encounter Location Date Provider Diagnosis [facility] [address] [address] 11/29/2023 Benito Guy Plan Of Treatment Pending Test Test Name Order Date X ray : Foot, left 2V 12/08/2017 X ray : Foot, right 2V 12/08/2017 [id number] NAIL, 6 OR MORE 09/15/2017 52772-RHPCCNM NAIL, 6 OR MORE 06/30/2017 28941-UNWAZNE NAIL, 6 OR MORE 12/08/2017 46558-OEIYORB NAIL, 6 OR MORE 03/01/2018 78647-LYMIWEB NAIL, 6 OR MORE 04/22/2011 09111-EDLINNJ NAIL, 6 OR MORE 10/14/2011 48903-NXPAPCD NAIL, 6 OR MORE 05/04/2012 91648-ELVUHKD NAIL, 6 OR MORE 06/06/2014 64048-NZWPJTZ NAIL, 6 OR MORE 11/20/2014 35481-ETQTKYH NAIL, 6 OR MORE 06/19/2015 74245-DHDCOBV NAIL, 6 OR MORE 10/27/2015 71264-MKKJHRC NAIL, 6 OR MORE 01/26/2016 19986-WYFBDLK NAIL, 6 OR MORE 04/26/2016 25622-IEBHWDN NAIL, 6 OR MORE 07/12/2016 75259-ACOQHUB NAIL, 6 OR MORE 10/25/2016 20027-HYNXNKU NAIL, 6 OR MORE 01/17/2017 19227-CQXUGOS NAIL, 6 OR MORE 04/07/2017 89059-Bayaobsm Plate 06/30/2017 04505-Xhhztwbo Plate 07/12/2016 55296-Mesfzczb Plate 10/25/2016 83177-Vrtojwnc Plate 06/06/2014 59064-Arhzevvp Plate 04/26/2016 11062-Nruwqtxu Plate 10/27/2015 38349-Djawcfkq Plate 06/19/2015 95574-Xipopypt Plate 11/20/2014 69044-Mzfwbowe Plate 03/01/2018 91081-Hlgfryvn Plate 09/15/2017 87237 I&D ABSCESS- SIMPLE,SINGLE 017 91753-NLBC SKIN LESIONS, OVER 4 07/01/19 18 37178-CGHP SKIN LESIONS, OVER 4 04/07/19 18 25226-YUGS SKIN LESIONS, OVER 4 01/18/20 17 48697-QARC SKIN LESIONS, OVER 4 04/26/19 17 76492-SCDI SKIN LESIONS, OVER 4 10/26/19 17 42582-NOPG SKIN LESIONS, OVER 4 06/19/19 16 03339-RXHR SKIN LESIONS, OVER 4 10/27/19 16 00402-EGFN SKIN LESIONS, OVER 4 01/26/20 16 11580-NZIB SKIN LESIONS, OVER 4 06/07/19 15 13223-FTNY SKIN LESIONS, OVER 4 05/04/19 13 82998-STPB SKIN LESIONS, OVER 4 10/14/19 12 32786-JZFN SKIN LESIONS, OVER 4 04/22/19 12 14177-RQJQ SKIN LESIONS, OVER 4 09/16/19 18 95145-MYFD SKIN LESIONS, OVER 4 12/09/19 18 72025-VIAG SKIN LESIONS, OVER 4 08/31/19 19 05283-XOIR SKIN LESIONS, OVER 4 11/23/19 19 17021-ESMT SKIN LESIONS, OVER 4 04/02/19 20 29882-EMTL SKIN LESIONS, OVER 4 10/10/19 20 25478-NBKQ SKIN LESIONS, OVER 4 02/11/20 20 12013-SINX SKIN LESIONS, OVER 4 05/12/19 21 13218-KVAJ SKIN LESIONS, OVER 4 07/29/19 21 64041-QIIQ SKIN LESIONS, OVER 4 10/23/19 21 24142-ZJOM SKIN LESIONS, OVER 4 04/02/19 22 20512-PART SKIN LESIONS, OVER 4 07/09/19 22 19647-EFYA SKIN LESIONS, OVER 4 08/29/19 24 38544-LIOW SKIN LESIONS, 2 TO 4 03/01/20 18 19208-EGHS SKIN LESIONS, 2 TO 4 06/01/19 19 20582-HUJJ SKIN LESIONS, 2 TO 4 11/21/19 15 48043-TBLD SKIN LESIONS, 2 TO 4 07/13/19 17 Insurance Providers Payer Name Payer Address Payer Phone Subscriber Number Group Number Insured Name Patient Relationship to Insured Coverage Start Date Coverage End Date Medicare National [employer] [address] [facility] [place] [address] [id number] Adri Strange Self - patient is the insured [employer] [address] [place] [address] [phone] [id number] Adri Strange Self - patient is the insured Medical (General) History Medical History History ICD Code hypertension chicken pox Cholesterol back, hip, knee pain type II diabetes Surgical History Surgery Date(Month/Year) carpal tunnel surgery 1979 section 1979 cyst removal 2004, 2005 ear surgery 1977 cataract surgery- rt- and lt 10-21,11-02 Ingrown Toe Nail 2023
--- OUTSIDE RECORDS SUMMARY | 2024-09-30 18:07 | XMS_ITS | Clinical Summary ---
Author Organization [address] Address [address] [place] [phone] Phone Care Team Providers Care Towing Pilot Name Role Phone Ida Virk MD Primary Care Provider [phone] Allergies No known active allergies Medications aspirin [...] times a day. Microlet lancets 3 Active vy-oox-VO-vit W-uthffx-ifyegr t (PreserVision AREDS 2 Plus MV) 200 [...] polyneuropathy, with long-term current use of insulin ([facility] V24, [facility] V28) 01/18/2024 02/11/2020 Severe obesity (BMI 35.0-39. 9) with comorbidity ([facility] V24, [facility] V28) 12/16/2021 Vitamin D insufficiency 12/07/2021 Splenic calcification 08/08/2020 Chronic bilateral low back pain without sciatica 08/08/2020 Bilateral carpal tunnel syndrome 08/08/2020 Gallstone 07/13/2020 Overview (01/18/2024): 06/2020-incidental finding on lumbar x-ray, partially calcified gallstone. Splenic artery aneurysm ([facility] V24) 07/13/2020 Overview (01/18/2024): 06/2020-incidental finding on lumbar x-ray. Neuropathy 02/11/2020 B12 deficiency 12/18/2019 Fibroid 11/18/2015 Overview (01/18/2024): On back xray at [facility] 06/2020-incidental finding of? Calcified uterine fibroids on lumbar x-ray Osteoarthritis, knee 07/24/2010 Hypertension 12/10/2005 Pure hypercholesterolemia 12/10/2005 Resolved Problems Problem Noted Date Diagnosed Date Resolved Date Positive colorectal cancer s creening using Cologuard test 08/16/2023 04/03/2024 Encounters Date Type Department Care Team Description 08/08/2024 8:00 AM EDT Office Visit [address] [phone] Jessie Wihtten PA Encounter for annual wellness visit (AWV) in Medicare patient (Primary Dx); Primary hypertension; B12 deficiency; Pure hypercholesterolemia ; Severe obesity (BMI 35.0-39.9) with comorbidity ([facility] V24, [facility] V28); Type 2 diabetes mellitus with diabetic polyneuropathy, with long-term current use of insulin ([facility] V24, [facility] V28); Vitamin D insufficiency; Splenic artery aneurysm ([facility] V24) 08/01/2024 10:15 AM EDT - 08/01/2024 11:59 PM EDT Hospital Encounter [address] [phone] Chronic low back pain without sciatica, unspecified back pain laterality Discharge Disposition: Home or Self Care 08/01/2024 8:00 AM EDT Office Visit [address] [phone] Jessie Whitten PA Chronic low back pain [...] x-ray, partially calcified gallstone. Splenic artery aneurysm ([facility] V24) 07/13/202006/2020-incidental finding on lumbar x-ray. Chronic bilateral low back p ain without sciatica 08/08/2020 Bilateral carpal tunnel syndrome 08/08/2020 Vitamin D insufficiency 12/07/2021 Type 2 diabetes mellitus wit h diabetic polyneuropathy, with long-term current use of insulin ([facility] V24, [facility] V28) 01/18/2024 Family History Medical History Relation Name Comments Arthritis Father DM, [place] Arthritis Mother DM, [place] Breast cancer Neg Hx Relation Name Status [...] for your loved ones. For example, child care center assistant director or elderly care for an older adult? [...] 2:30 PM EDT Consult Vascular Surgery - [place] [address] [place] [phone] [facility] [address] [facility] [address] [place] [address] 11/28/2024 11:15 AM EDT Office Visit Adult Medicine [facility] [address] [place] [phone] Ida Virk MD [address] [place] [phone] Health Maintenance Due Date Last Done Comments Diabetes: Annual Retina Eye Exam 02/26/1966 Breast Cancer Screening 09/29/2022 09/30/19, 04/16/2019, 04/11/2018, Additional history exists COVID-19 Vaccine ( season) 2023 01/05/2023, 09/15/2022, 12/24/2021, Additional history exists Falls Risk Assessment 07/25/2024 07/26/2023 Diabetes: Annual Foot Exam 08/28/2024 08/29/2023 Influenza Vaccine (#1) 2024 , 11/29/2023, 11/29/2023, Additional history exists Diabetes: Blood Sugar Control Test (HGBA1C) 02/01/2025 [...] Colorectal Cancer Screening: FIT-DNA (Cologuard) Discontinued 08/08/2023 HIB Vaccines Aged Out No longer eligi [...] polyneuropathy, with long-term current use of insulin ([facility] V24, [facility] V28) HEMOGLOBIN A1C Routine 08/01/2024 9:01 AM EDT B12 deficiency Vitamin D insufficiency Type 2 diabetes mellitus with diabetic polyneuropathy, with long-term current use of insulin ([facility] V24, [facility] V28) MICROALBUMIN CREATININE URINE RATIO Routine 08/01/2024 9:01 AM EDT B12 deficiency Vitamin D insufficiency Type 2 diabetes mellitus with diabetic polyneuropathy, with long-term current use of insulin ([facility] V24, [facility] V28) COMPREHENSIVE METABOLIC PANEL Routine 08/01/2024 9:01 AM EDT B12 deficiency Vitamin D insufficiency Type 2 diabetes mellitus with diabetic polyneuropathy, with long-term current use of insulin ([facility] V24, [facility] V28) CBC AND DIFFERENTIAL Routine 08/01/2024 9:01 AM EDT B12 deficiency Vitamin D insufficiency Type 2 diabetes mellitus with diabetic polyneuropathy, with long-term current use of insulin ([facility] V24, [facility] V28) VITAMIN D 25 HYDROXY Routine 08/01/2024 9:01 AM EDT B12 deficiency Vitamin D insufficiency Type 2 diabetes mellitus with diabetic polyneuropathy, with long-term current use of insulin ([facility] V24, [facility] V28) VITAMIN B12 Routine 08/01/2024 9:01 AM EDT B12 deficiency Vitamin D insufficiency Type 2 diabetes mellitus with diabetic polyneuropathy, with long-term current use of insulin ([facility] V24, [facility] V28) DXA BONE DENSITY STUDY 1+ SITS [...] Signed Date: 08/01/2024 12:33 ET Workstation ID: [id number] Transcribed By: Self Edit Transcribed Date: 08/01/2024 [...] Signed Date: 08/01/2024 12:33 ET Workstation ID: [id number] Transcribed By: Self Edit Transcribed Date: 08/01/2024 12:14 ET us Jessie COREA IMG XR PROCEDURES Final Resul t * CBC auto differential (08/01/2024 9:01 AM EDT) WBC 8.1 4.8 - 10.8 K/mcL LAB HEMETOLOGY METHOD 08/01/2024 12:57 PM EDT [facility] RBC 4.40 3.80 - 4.80 M/mcL LAB HEMETOLOGY METHOD 08/01/2024 12:57 PM EDT [facility] Hemoglobin 13.0 11.5 - 16.0 g/dL LAB HEMETOLOGY METHOD [facility]24 [facility] Hematocrit 39.9 35.0 - 47.0 % LAB HEMETOLOGY METHOD 08/01/2024 12:57 [facility] MCV 91.1 79.0 - 98.0 FL LAB HEMETOLOGY METHOD 08/01/2024 12:57 PM EDT [facility] MCH 29.7 27.0 - 32.0 pcg LAB HEMETOLOGY METHOD 08/01/2024 12:57 [facility] MCHC 32.6 32.0 - 37.0 g/dL LAB HEMETOLOGY METHOD 08/01/2024 12:57 PM EDT [facility] RDW 13.2 11.0 - 15.0 % LAB HEMETOLOGY METHOD 08/01/2024 12:57 PM EDT [facility] Platelets 271 130 - 400 K/mcL LAB HEMETOLOGY METHOD 08/01/2024 12:57 [facility] MPV 10.7 7.0 - 11.0 FL LAB HEMETOLOGY METHOD 08/01/2024 12:57 PM [facility] NRBC 0.0 <1.0 % LAB HEMETOLOGY METHOD 08/01/2024 12:57 [facility] NRBC Absolute 0.00 <0.10 K/mcL LAB HEMETOLOGY METHOD 08/01/2024 12:57 PM [facility] Neutrophils Relative 71.8 % LAB HEMETOLOGY METHOD 08/01/2024 12:57 PM [facility] Lymphocytes Relative 20.1 % LAB HEMETOLOGY METHOD 08/01/2024 12:57 PM [facility] Monocytes Relative 6.7 % LAB HEMETOLOGY METHOD 08/01/2024 12:57 PM [facility] Eosinophils Relative 0.5 % LAB HEMETOLOGY METHOD 08/01/2024 12:57 PM [facility] Basophils Relative 0.5 % LAB HEMETOLOGY METHOD 08/01/2024 12:57 PM [facility] Immature Granulocytes Relative 0.4 % LAB HEMETOLOGY METHOD 08/01/2024 12:57 PM [facility] Neutrophils Absolute 5.81 1.50 - 7.00 K/mcL LAB HEMETOLOGY METHOD 08/01/2024 12:57 PM [facility] Lymphocytes Absolute 1.63 1.00 - 5.00 K/mcL LAB HEMETOLOGY METHOD 08/01/2024 12:57 PM [facility] Monocytes Absolute 0.54 0.20 - 1.00 K/mcL LAB HEMETOLOGY METHOD 08/01/2024 12:57 PM [facility] Eosinophils Absolute 0.04 0.00 - 0.50 K/mcL LAB HEMETOLOGY METHOD 08/01/2024 12:57 PM [facility] Basophils Absolute 0.04 0.00 - 0.20 K/mcL LAB HEMETOLOGY METHOD 08/01/2024 12:57 PM [facility] Immature Granulocytes Absolute 0.03 0.00 - 0.03 K/[facility] LAB HEMETOLOGY METHOD 08/01/2024 12:57 PM EDT [facility] Blood Venous blood specimen / Unknown Venipuncture / Unknown 08/01/2024 9:01 AM EDT 08/01/2024 9:01 AM EDT us Jessie COREA LAB BLOOD ORDERABLES Final Re sult Performing Organization Address City/[facility]/ZIP Co de Phone Number [facility] [address] [place] [address], [place] [phone] * (ABNORMAL) Microalbumin creatinine urine ratio (08/01/2024 9:01 AM EDT) Creatinine, Urine 159.0 mg/dL LAB CHEMISTRY METHOD 08/01/2024 11:50 AM EDT [facility] Microalb, Ur 35.5(H) 0.0 - 29.0 mg/L LAB CHEMISTRY METHOD 08/01/2024 11:50 AM EDT [facility] Microalb/Crea t Ratio 22 <30 mg/g creat LAB CHEMISTRY METHOD 08/01/2024 11:50 AM EDT [facility] Urine Urine specimen from urethra / Unknown Non-blood Collection / Unknown 08/01/2024 9:01 AM EDT 08/01/2024 9:01 AM EDT us Jessie COREA LAB URINE ORDERABLES Final Re sult [facility] [address] [place] [address], [place] [phone] * Vitamin D 25 hydroxy (08/01/2024 9:01 AM EDT) Vit D, 25-Hydroxy 45.5 30.0 - 80.0 ng/mL LAB CHEMISTRY METHOD 08/01/2024 12:34 PM EDT [facility] Blood Venous blood specimen / Unknown Venipuncture / Unknown 08/01/2024 9:01 AM EDT 08/01/2024 9:01 AM EDT us Jessie COREA LAB BLOOD ORDERABLES Final Re sult Performing Organization Address [facility]/ZIP Co de Phone Number [facility] [address] [place] [address], [place] [phone] * (ABNORMAL) Hemoglobin A1c (08/01/2024 9:01 AM EDT) Pathologist [facility] [place] Hemoglobin A1C 6.6(H) <6.5 % LAB CHEMISTRY METHOD 08/01/2024 2:47 PM EDT [facility] Mean Bld Glu Estim. 143 mg/dL LAB CHEMISTRY METHOD 08/01/2024 2:47 PM EDT [facility] Blood Venous blood specimen / Unknown Venipuncture / Unknown 08/01/2024 9:01 AM EDT 08/01/2024 9:01 AM EDT us Jessie COREA LAB BLOOD ORDERABLES Final Re sult Performing Organization Address [facility] Co de Phone Number [facility] [address] [place] [address], [place] [phone] * (ABNORMAL) Vitamin B12 (08/01/2024 9:01 AM EDT) Pathologist [facility] [place] Vitamin B-12 1,842(H) 250 - 900 pcg/mL LAB CHEMISTRY METHOD 08/01/2024 11:37 AM EDT [facility] Blood Venous blood specimen / Unknown Venipuncture / Unknown 08/01/2024 9:01 AM EDT 08/01/2024 9:01 AM EDT us Jessie COREA LAB BLOOD ORDERABLES Final Re sult [facility] [address] [place] [address], * (ABNORMAL) Comprehensive metabolic panel (08/01/2024 9:01 AM EDT) Sodium 141 133 - 145 mmol/L LAB CHEMISTRY METHOD 08/01/2024 11:14 AM [facility] Potassium 3.4(L) 3.5 - 5.5 mmol/L LAB CHEMISTRY METHOD 08/01/2024 11:14 AM [facility] Chloride 102 96 - 110 mmol/L LAB CHEMISTRY METHOD 08/01/2024 11:14 AM [facility] CO2 34(H) 21 - 32 mmol/L LAB CHEMISTRY METHOD 08/01/2024 11:14 AM [facility] Anion Gap 5 3 - 11 LAB CHEMISTRY METHOD 08/01/2024 11:14 AM [facility] Glucose 90 70 - 100 mg/dL LAB CHEMISTRY METHOD 08/01/2024 11:14 AM [facility] BUN 18 5 - 25 mg/dL LAB CHEMISTRY METHOD 08/01/2024 11:14 AM [facility] Creatinine 0.88 0.50 - 1.10 mg/dL LAB CHEMISTRY METHOD 08/01/2024 11:14 AM [facility] eGFR 72 >=60 mL/min/1. 73m2 LAB CHEMISTRY METHOD 08/01/2024 11:14 AM [facility] Comment:Calculation based on the Chronic Kidney Disease Epidemiology Collaboration (CKD-EPI) equation refit without adjustment for race. BUN/Creatinine Ratio 20.5 LAB CHEMISTRY METHOD 08/01/2024 11:14 AM [facility] Calcium 10.4 8.5 - 10.5 mg/dL LAB CHEMISTRY METHOD 08/01/2024 11:14 AM [facility] AST (SGOT) 21 10 - 42 unit/L LAB CHEMISTRY METHOD 08/01/2024 11:14 AM EDT [facility] ALT (SGPT) 33 10 - 60 unit/L LAB CHEMISTRY METHOD 08/01/2024 11:14 AM EDT [facility] Alkaline Phosphatase 59 42 - 121 unit/L LAB CHEMISTRY METHOD 08/01/2024 11:14 AM EDT [facility] Total Protein 7.5 6.0 - 8.0 g/dL LAB CHEMISTRY METHOD 08/01/2024 11:14 AM EDT [facility] Albumin 4.1 3.2 - 5.0 g/dL LAB CHEMISTRY METHOD 08/01/2024 11:14 AM EDT [facility] Total Bilirubin 0.6 0.0 - 1.4 mg/dL LAB CHEMISTRY METHOD 08/01/2024 11:14 AM EDT [facility] Blood Venous blood specimen / Unknown Venipuncture / Unknown 08/01/2024 9:01 AM EDT 08/01/2024 9:01 AM EDT us Jessie COREA LAB BLOOD ORDERABLES Final Re sult [facility] [address] [place] [address], * DXA BONE DENSITY STUDY 1+ SITS [...] classified as having normal bone density. The [facility] Department of Internal Medicine recommends using [...] beclassified as having normal bone density. The [facility] Department of Internal Medicine recommendsusing National [...] Recently Relevant to Health Maintenance Insurance [facility] Care Teams Towing Pilot Relationship Specialty Start Date End Date Ida Virk MD [address] [place] [address] PCP - General Internal Medicine 10/01/19
== END 2024-09-30 18:06 | disposition home or self-care (01) ==
LOC: HO.MRI 18:05
PROVIDERS: PCP Internal Medicine; Visit Provider Psychiatry & Neurology Neurology
DX: G30.0 Alzheimer's disease with early onset (principal); F02.B0 Dementia in other diseases classified elsewhere, moderate, without behavioral disturbance, psychotic disturbance, mood disturbance, and anxiety
CPT/HCPCS: 70551

== ENCOUNTER → 2024-09-30 18:25 | Outpatient (BNV) | payer MEDICARE, SELFPAY | PROVIDERS: PCP Internal Medicine; Visit Provider Radiology Diagnostic Radiology | DX: G30.0 Alzheimer's disease with early onset (principal) | CPT/HCPCS: 70551 ==

== ENCOUNTER 2024-11-21 08:01 | Outpatient (AMB) | payer MEDICARE, SELFPAY ==
--- OUTSIDE RECORDS SUMMARY | 2023-07-28 04:30 | XMS_ITS ---
Author Organization [facility] Address [address] [place] [address] Care Team Providers Care Shoe Treer Name Role Phone Ida Virk Primary Care Provider Benito Moses [phone] Bolton Encounters Encounter Location Date Provider Diagnosis [address] [address] 07/28/2023 Benito Guy Plan Of Treatment No Information Progress Notes * Adri STRANGE ADOB:1954 (69 yo F)Acc No.[id number]:07/28/2023 Progress Note Patient: Adri LOPEZ Provider: Lina Guy DPM :1955 A ge:68 Y S ex:Female Date:07/28/2023 Address:[address] [place], [place] [id number] Pcp:Ida Virk Subjective: * Chief Complaints: * [address] Bolton. * Medical History: Objective: * Vitals: Assessment: Plan: * Treatment: * Images: * The named appointment provid er may or may not be the originator of this progress note, and it is not deemed complete until electronically signed by the appointment provider. Sign off status: Pending * Provider: Lina Guy DPM Date: 0 07/28/2023 Generated for Printi ng/Faxing/eTransmitting on: 0 11/21/2024 08:09 AM EDT
--- OUTSIDE RECORDS SUMMARY | 2023-08-08 04:00 | XMS_ITS ---
Author Organization [facility] Address [address] [place] [address] Care Team Providers Care Research Test Engine Evaluator Name Role Phone Ida Virk Primary Care Provider Benito Moses [phone] Encounters Encounter Location Date Provider Diagnosis [address] [address] 08/08/2023 Benito Guy Plan Of Treatment No Information Progress Notes * Adri STRANGE ADOB:1954 (69 yo F)Acc No.[id number]:08/08/2023 Progress Note Patient: Adri LOPEZ Provider: Lina Guy DPM :1955 A ge:68 Y S ex:Female Date:08/08/2023 Address:[address] [place], [place] [id number] Pcp:Ida Virk Subjective: * Chief Complaints: * * Medical History: Objective: * Vitals: Assessment: Plan: * Treatment: * Images: * The named appointment provid er may or may not be the originator of this progress note, and it is not deemed complete until electronically signed by the appointment provider. Sign off status: Pending * Provider: Lina Guy DPM Date: 0 08/08/2023 Generated for Lashelli ng/Fastefanyg/eTransmitting on: 0 11/21/2024 08:09 AM EDT
--- OUTSIDE RECORDS SUMMARY | 2023-11-30 04:15 | XMS_ITS ---
Author Organization [facility] Address [address] [place] [address] Care Team Providers Care Infant Caregiver Name Role Phone Ida Virk Primary Care Provider Benito Moses Unavailable [phone] REASON FOR VISIT Painful nail(s) aggrevated by shoes and causing difficulty standing/walking. Encounters Encounter Location Date Provider Diagnosis [address] [address] 11/30/2023 Benito Guy Tinea unguium B35.1 ; Type 1 diabetes mellitus with diabetic polyneuropathy E10.42 ; Pain in right toe(s) M79.674 ; Pain in left toe(s) M79.675 ; Primary osteoarthritis, left ankle and foot M19.072 ; Primary osteoarthritis, right ankle and foot M19.071 ; Ingrowing nail L60.0 and Xerosis cutis L85.3 Assessments Encounter Date Diagnosis (ICD Code) Assessment Notes Treatment Notes Treatment Clinical Notes Section Notes 11/30/2023 Tinea unguium (ICD-10 - B35.1) 11/30/2023 Type 1 diabetes mellitus with diabetic polyneuropathy (ICD-10 - E10.42) 11/30/2023 Pain in right toe(s) (ICD-10 - M79.674) 11/30/2023 Pain in left toe(s) (ICD-10 - M79.675) 11/30/2023 Primary osteoarthritis, left ankle and foot (ICD-10 - M19.072) 11/30/2023 Primary osteoarthritis, right ankle and foot (ICD-10 - M19.071) 11/30/2023 Ingrowing nail (ICD-10 - L60.0) 11/30/2023 Xerosis cutis (ICD-10 - L85.3) Plan Of Treatment Next Appt Details Follow Up: 3 Months, Reason: Procedure Notes * Category Sub-Category Detail Notes Debride Nail 6-10 Nail debridement Nail debridem ent performed extensively to reduce/remove overall nail length and girth, subungual debris, and necrotic tissue, by manual and electrical means with use of a nail nipper and/or dremel, to more viable healthy nail plate or bed tissue 6-10. Silver nitrate used for any petechial bleeding as necessary. Patient chooses, no pharmaceutical tx (54279) Keratoma Treatment Parring or Cutting o f Benign Hyperkeratotic Lesion(s) 62231 ( >4 Lesions) - The Benign hyperkeratotic lesions, as described above were pared, and/or cut utilizing a sterile #15 blade, tissue nippers, and/or dremel Progress Notes * Adri STRANGE ADOB:1954 (69 yo F)Acc No.[id number]:11/30/2023 Progress Note Patient: Adri LOPEZ A Provider: Lina Guy DPM :1955 A ge:68 Y S ex:Female Date:11/30/2023 Address:[address] [place] [address] Pcp:Ida Virk Subjective: * Chief Complaints: * 1 . Painful nail(s) aggrevated by shoes and causing difficulty standing/walking.. * HPI: P ainful Nails: Pt States Last PCP Visit: D ate: 0 05/20/2023 S kin problems: Misc: p t lost her to kidney ca recently. * ROS: G eneral/Constitutional: Nausea d enies. V omiting d enies. H aleshia Thirst d enies. L oss appetite d enies. C hills d enies. F atigue d enies.?Fever d enies. N ight Sweats d enies. U nexplained weight loss d enies. O phthalmologic: Blurred vision d enies. R ed eye d enies. ? H EENTM: Dentures d enies. D izziness d enies. G lasses/contacts a dmits. R etinopathy d enies. B lurred/double vision d enies. T MJ?denies. D ischarge/drainage d enies. I mplants d enies. H nain of hearing denies. D ifficulty chewing/swallowing/speaking d enies. N ose bleeds d enies.?Sore mouth d enies. S wollen glands d enies. R espiratory: On Oxygen d enies. P neumonia/pleurisy d enies.?Bronchitis d enies. E mphysema d enies. C oughing d enies. C ough blood?denies. S hortness of breath d enies. W heezing d enies. C ardiovascular: Pacemaker d enies. M RECREATIONAL VEHICLE REPAIRER d enies. W PW d enies. C HF d enies. H eart attack d enies. S eptal defect d enies. R apid beat d enies. C hest pain d enies. A trial Fib. d enies. M urmur/Palpitations d enies. G astrointestinal: Hemorrhoids d enies. S tomach/Abdominal pain d enies. D ark blood stool d enies. I rritable bowel d enies. C onstipation d enies. D iarrhea d enies. V omiting d enies. H ematology: Swelling a dmits. B ruising d enies. B leeding problem d enies. G enitourinary: Blood urine d enies. F requent/Painfu/urination/bladder control d enies. K idney stones d enies. I nfection (UTI) d enies. N ephropathy d enies. M usculoskeletal: Hammertoes d enies. B unions d enies. S coliosis/kyphosis d enies. M uscle cramps / walking d enies. G eneralized aches and pains?admits. W eakness d enies. I nteg.: [place] d enies. S cars d enies. C orns/calluses?denies. I ngrown nails d enies. P ainful nails d enies. R ashes d enies. N eurologic: Difficulty sleeping d enies. B ipolar d enies. B rain disorder d enies. B alance trouble d enies. C onfusion d enies. F ainting/blackouts d enies. H eadache d enies. T remors d enies. * Medical History: Objective: * Vitals: * Examination: O phthalmology Referral: DIABETES EYE EXAM D iabetic Retinopathy Screening: N o F indings of Diabetic Eye Exam: n o retinopathy N eurological: SENSORY: N eurological exam demonstrates, reduced vibration sensation, at Forefoot, at Midfoot, B/L, 5.07 monofilament test performed at plantar aspects of 5 varied sites per foot shows sensation, reduced , B/L. V ascular: DP PULSES (B): 1/4, B/L. PT PULSES (B): 0/4, B/L. EDEMA (C): 1/4, B/L, Ankle(s), Leg(s). ? N ails: NAILS are: e longated,overgrown,dystrophic,greater than 3mm thick,discolored and friable with crumbly malodorous subungual debris, no pain on palpation due to neuropathy, 1-5 B/L. D ermatologic: SKIN FINDINGS: S kin exam reveals Keratotic lesion(s) located at, Plantar, TA, T5, Midfoot, Heel(s), B/L ; fibroma plantar right distal PF 5mm in yaakov, Skin exam reveals Keratotic lesion(s) located at, , SUB MTH (s), 1, B/L, Heel(s), B/L, Skin shows sign(s) of, dryness, scaling, in a stocking fashion, no fissure(s) present, B/L. Assessment: * Assessment: 1. T inea unguium - B35.1 2 . T ype 1 diabetes mellitus with diabetic polyneuropathy - E10.42 (Primary) 3 . P ain in right toe(s) - M79.674 ?4. P ain in left toe(s) - M79.675 5 . P rimary osteoarthritis, left ankle and foot - M19.072 6 . P rimary osteoarthritis, right ankle and foot - M19.071? 7. I ngrowing nail - L60.0 8 . X erosis cutis - L85.3 ? Plan: * Treatment: * Procedures: D ebride Nail 6-10: Nail debridement N ail debridement performed extensively to reduce/remove overall nail length and girth, subungual debris, and necrotic tissue, by manual and electrical means with use of a nail nipper and/or dremel, to more viable healthy nail plate or bed tissue 6-10. Silver nitrate used for any petechial bleeding as necessary. Patient chooses, no pharmaceutical tx (35747). K eratoma Treatment: Parring or Cutting of Benign Hyperkeratotic Lesion(s) 1 1057 ( >4 Lesions) - The Benign hyperkeratotic lesions, as described above were pared, and/or cut utilizing a sterile #15 blade, tissue nippers, and/or dremel. * Procedure Codes: 1 1721 DEBRIDE NAIL, 6 OR MORE, Modifiers: XS , 46141 TRIM SKIN LESIONS, OVER 4, Modifiers: XS * Follow Up: 3 Months * Images: * The named appointment provid er may or may not be the originator of this progress note, and it is not deemed complete until electronically signed by the appointment provider. Sign off status: Pending * Provider: Lina Guy DPM Date: 0 11/30/2023 Generated for Marichuy garcia/[place] on: 0 11/21/2024 08:09 AM EDT History and Physical Notes * HPI (History of Present Illness) Category Sub-Category Detail Notes Category Not es Painful Nails Pt States Last PCP Visit: Date:: 05/20/2023 Skin problems Misc: pt lost her husb and to kidney ca recently Examination Category Sub-Category Detail Notes Category Not es Neurological SENSORY: Neurological exa m demonstrates, reduced vibration sensation, at Forefoot, at Midfoot, B/L, 5.07 monofilament test performed at plantar aspects of 5 varied sites per foot shows sensation, reduced , B/L Dermatologic SKIN FINDINGS: Skin exam reveal s Keratotic lesion(s) located at, Plantar, TA, T5, Midfoot, Heel(s), B/L ; fibroma plantar right distal PF 5mm in yaakov, Skin exam reveals Keratotic lesion(s) located at, , SUB MTH (s), 1, B/L, Heel(s), B/L, Skin shows sign(s) of, dryness, scaling, in a stocking fashion, no fissure(s) present, B/L Ophthalmology Referral DIABETES EYE EXAM Diabeti c Retinopathy Screening:: No Findings of Diabetic Eye Exam:: no retin opathy Vascular DP PULSES (B): 1/4, B/L PT PULSES (B): 0/4, B/L EDEMA (C): 1/4, B/L, Ankle(s), Leg(s) Nails NAILS are: elongated,overgr own,dystrophic,greater than 3mm thick,discolored and friable with crumbly malodorous subungual debris, no pain on palpation due to neuropathy, 1-5 B/L
--- OUTSIDE RECORDS SUMMARY | 2024-11-21 08:09 | XMS_ITS | Patient Health Record ---
Author Organization [facility] Address [address] [place] [address] Care Team Providers Care Acls Nurse Name Role Phone Ida Virk Primary Care Provider Benito Moses Unavailable [phone] Allergies No Known Allergies Reason For Referral [...] Vaccine Route Administration Date Status Comme nts Influenza Unknown 12/23/2014 Administered Influenza Unknown 10/27/2015 Pending Influenza Unknown 11/19/2016 Administered Influenza Unknown 03/01/2018 Administered Influenza Unknown 11/19/2021 Administered Influenza Unknown 12/20/2022 Administered Pneumococcal Unknown 11/26/2013 Administered COVID-19 Moderna Vaccine Unknown 03/25/2021 Administere d 1st 06/10/2020 2nd 07/18/2020 Social History Tobacco Use: Social History Observation [...] primary osteoarthritis of the ankle and/or foot (231845622) Primary osteoarthritis, right ankle and foot (M19.071) Active confirmed Problem Localized, primary osteoarthritis of the ankle and/or foot (285236088) Primary osteoarthritis, left ankle and foot (M19.072) Active confirmed Problem Non-pressure chronic ulcer of other part of left foot limited to breakdown of skin (L97.521) Active confirmed Problem Polyneuropathy due to diabetes mellitus type I (488279802) Type 1 diabetes mellitus with diabetic polyneuropathy (E10.42) Active confirmed Encounters Encounter Location Date Provider Diagnosis [facility] [address] [address] 11/29/2023 Benito Guy Plan Of Treatment Pending Test Test Name Order Date X ray : Foot, left 2V 12/08/2017 X ray : Foot, right 2V 12/08/2017 71173-[id number] NAIL, 6 OR MORE 09/15/2017 59546-ZFNRWNL NAIL, 6 OR MORE 06/30/2017 15579-FIFPJDT NAIL, 6 OR MORE 12/08/2017 05084-YNESZEK NAIL, 6 OR MORE 03/01/2018 83010-BKSIQVO NAIL, 6 OR MORE 04/22/2011 08441-BRGTUDY NAIL, 6 OR MORE 10/14/2011 09473-MQZFLIP NAIL, 6 OR MORE 05/04/2012 58713-YDKVJFJ NAIL, 6 OR MORE 06/06/2014 76933-UWIMOBW NAIL, 6 OR MORE 11/20/2014 50642-ZYFRUMN NAIL, 6 OR MORE 06/19/2015 90270-BOVGCND NAIL, 6 OR MORE 10/27/2015 82179-MJBBZMT NAIL, 6 OR MORE 01/26/2016 39355-FBGBXXK NAIL, 6 OR MORE 04/26/2016 70915-OXKSFTH NAIL, 6 OR MORE 07/12/2016 01933-YIKHOFW NAIL, 6 OR MORE 10/25/2016 08028-YTPWHYE NAIL, 6 OR MORE 01/17/2017 37322-GSLOTHM NAIL, 6 OR MORE 04/07/2017 81055-Gbhkvshs Plate 06/30/2017 88388-Cslxqfiu Plate 07/12/2016 08952-Xtweunqs Plate 10/25/2016 51735-Hphijnsq Plate 06/06/2014 47803-Rmambcdr Plate 04/26/2016 90732-Rscnwxtk Plate 10/27/2015 78088-Brfispqq Plate 06/19/2015 99252-Eebhborz Plate 11/20/2014 79023-Kdhjwmpa Plate 03/01/2018 31163-Naozejcz Plate 09/15/2017 36960 I&D ABSCESS- SIMPLE,SINGLE 017 06921-UEEJ SKIN LESIONS, OVER 4 07/01/19 18 97016-XUVE SKIN LESIONS, OVER 4 04/07/19 18 19754-DOLN SKIN LESIONS, OVER 4 01/18/20 17 62940-MOVA SKIN LESIONS, OVER 4 04/26/19 17 41721-NCTA SKIN LESIONS, OVER 4 10/26/19 17 76939-XERQ SKIN LESIONS, OVER 4 06/19/19 16 72340-DUQQ SKIN LESIONS, OVER 4 10/27/19 16 77970-IPGM SKIN LESIONS, OVER 4 01/26/20 16 45781-TSRU SKIN LESIONS, OVER 4 06/07/19 15 95864-XHDR SKIN LESIONS, OVER 4 05/04/19 13 18871-YJOF SKIN LESIONS, OVER 4 10/14/19 12 51614-VTKT SKIN LESIONS, OVER 4 04/22/19 12 81970-DOIO SKIN LESIONS, OVER 4 09/16/19 18 63450-WFHH SKIN LESIONS, OVER 4 12/09/19 18 68541-MYDR SKIN LESIONS, OVER 4 08/31/19 19 90720-JNNL SKIN LESIONS, OVER 4 11/23/19 19 32905-RKKB SKIN LESIONS, OVER 4 04/02/19 20 00772-WSQR SKIN LESIONS, OVER 4 10/10/19 20 36402-WERW SKIN LESIONS, OVER 4 02/11/20 20 90346-NGFQ SKIN LESIONS, OVER 4 05/12/19 21 71936-EQEZ SKIN LESIONS, OVER 4 07/29/19 21 69675-UDBT SKIN LESIONS, OVER 4 10/23/19 21 47345-EGKU SKIN LESIONS, OVER 4 04/02/19 22 94640-CMMH SKIN LESIONS, OVER 4 07/09/19 22 83269-LKXJ SKIN LESIONS, OVER 4 08/29/19 24 81841-SEHC SKIN LESIONS, 2 TO 4 03/01/20 18 90506-EKTF SKIN LESIONS, 2 TO 4 06/01/19 19 63188-BVVH SKIN LESIONS, 2 TO 4 11/21/19 15 64960-QCZH SKIN LESIONS, 2 TO 4 07/13/19 17 Insurance Providers Payer Name Payer Address Payer Phone Subscriber Number Group Number Insured Name Patient Relationship to Insured Coverage Start Date Coverage End Date Medicare National [employer] [address] [facility] [place] [address] [id number] Adri Strange Self - patient is the insured [employer] [address] [place] [address] [phone] [id number] Adri Strange Self - patient is the insured Medical (General) History Medical History History ICD Code hypertension chicken pox Cholesterol back, hip, knee pain type II diabetes Surgical History Surgery Date(Month/Year) carpal tunnel surgery 1979 section 1979 cyst removal 2004, 2005 ear surgery 1977 cataract surgery- rt- and lt 10-21,11-02 Ingrown Toe Nail 2023
--- OUTSIDE RECORDS SUMMARY | 2024-11-21 08:10 | XMS_ITS ---
Author Name [facility] Organization Unknown Care Team Organization Name Specialty Phone Email Start Date End Da te [facility] Ida Virk Primary Care 11/25/2022 [facility] Cheikh, PROVIDER Primary Care 08/27/202210/19
--- OUTSIDE RECORDS SUMMARY | 2024-11-21 08:10 | XMS_ITS | Clinical Summary ---
Author Organization [address] Address [address] [place] [phone] Phone Care Team Providers Care End Finder Twisting Department Name Role Phone Ida Virk MD Primary Care Provider [phone] Allergies No known active allergies Medications aspirin 81 mg chewable tablet Chew 1 tablet (81 mg total) 1 (one) time each day. Active cholecalcifero l (VITAMIN D-3) 50 mcg (2,000 unit) tablet Take 1 tablet (2,000 Units total) by mouth 1 (one) time each day. 4 Active pen needle, diabetic (BD Ultra-Fine Short Pen Needle) 31 gauge x 5/16 needle 1 each 4 (four) times a day. With Insulin use 0 Active lancets lancets 1 each 3 (three) times a day. Microlet lancets 3 Active ek-mcx-QA-vit U-mshqwx-pvcpa nt (PreserVision AREDS 2 Plus MV) 200 mcg-15 [...] AT BEDTIME 90 tablet 1 5 Active hydroCHLOROthi azide 12.5 mg tablet TAKE 1 TABLET DAILY 90 tablet 1 5 Active carvediloL (COREG) 25 mg tablet TAKE 1 TABLET TWICE A DAY WITH MEALS 180 tablet 3 5 Active metFORMIN (GLUCOPHAGE) 1,000 mg tablet TAKE 1 TABLET TWICE A DAY WITH MEALS 180 tablet 3 5 Active atorvastatin (LIPITOR) 40 mg tablet Take 1 tablet (40 mg total) by mouth at bedtime. 90 tablet 1 5 Active Lantus Solostar U-100 Insulin 100 unit/mL (3 mL) injection pen Inject 40 Units under the skin at bedtime. 30 mL 1 5 Active CYANOCOBALAMIN , VITAMIN B-12, ORAL Place under the tongue. Active fluticasone propionate (FLONASE) 50 mcg/actuation nasal spray Administer 2 sprays into each nostril 1 (one) time each day. 4 10/26/19 25 Discontinu ed(Therapy completed) Active Problems Problem Noted Date Diagnosed Date Moderate early onset Alzheim er's dementia without behavioral disturbance, psychotic disturbance, mood disturbance, or anxiety ([facility] V24, [facility] V28) 10/25/2024 Cognitive impairment 04/03/2024 Type 2 diabetes mellitus wit h diabetic polyneuropathy, with long-term current use of insulin ([facility] V24, [facility] V28) 01/18/2024 02/11/2020 Severe obesity (BMI 35.0-39. 9) with comorbidity ([facility] V24, [facility] V28) 12/16/2021 Vitamin D insufficiency 12/07/2021 Splenic calcification 08/08/2020 Chronic bilateral low back pain without sciatica 08/08/2020 Bilateral carpal tunnel syndrome 08/08/2020 Gallstone 07/13/2020 Overview (01/18/2024): 06/2020-incidental finding on lumbar x-ray, partially calcified gallstone. Splenic artery aneurysm ([facility] V24) 07/13/2020 Overview (01/18/2024): 06/2020-incidental finding on lumbar x-ray. Neuropathy 02/11/2020 B12 deficiency 12/18/2019 Fibroid 11/18/2015 Overview (01/18/2024): On back xray at [facility] 06/2020-incidental finding of? Calcified uterine fibroids on lumbar x-ray Osteoarthritis, knee 07/24/2010 Hypertension 12/10/2005 Pure hypercholesterolemia 12/10/2005 Resolved Problems Problem Noted Date Diagnosed Date Resolved Date Positive colorectal cancer s creening using Cologuard test 08/16/2023 04/03/2024 Encounters Date Type Department Care Team Description 10/25/2024 11:30 AM EDT Office Visit Adult Medicine [facility] [address] [place] [phone] Dalila Paredes PA Moderate early onset Alzheimer's dementia without behavioral disturbance, psychotic disturbance, mood disturbance, or anxiety ([facility] V24, [facility] V28) (Primary Dx); Vitamin B 12 deficiency; Primary hypertension; Type 2 diabetes mellitus with diabetic polyneuropathy, with long-term current use of insulin ([facility] V24, [facility] V28) 10/25/2024 Telephone Adult Medicine [address] [phone] Dalila Paredes PA 10/17/2024 1:04 PM EDT - 10/17/2024 11:59 PM EDT Hospital Encounter CT Scan [address] [place] [phone] Splenic artery aneurysm ([facility] V24) Discharge Disposition: Home or Self Care 10/12/2024 2:30 PM EDT Consult Vascular Surgery - [facility] [address] [place] [phone] Ciara Wu MD Splenic artery aneurysm ([facility] V24) (Primary Dx) from Last 3 Months Immunizations Name Administration [...] CARPAL TUNNEL RELEASE - Bilateral CATARACT EXTRACTION 2016 Bilateral OTHER SURGICAL HISTORY 1976 Right EAR SURGERY SHOULDER SURGERY Right shoulder mass removal COLONOSCOPY 10/12/2023 2 polyps, repeat 5 years Medical History Medical History Date Comments Pure hypercholesterolemia 12/10/2005 Essential hypertension, benign 12/10/2005 Osteoarthritis, knee 07/24/2010 Hypertension 12/10/2005 B12 deficiency 12/18/2019 Gallstone 07/13/202006/2020-incidenta l finding on lumbar x-ray, partially calcified gallstone. Splenic artery aneurysm ([facility] V24) 07/13/202006/2020-incidental finding on lumbar x-ray. Chronic bilateral low back p ain without sciatica 08/08/2020 Bilateral carpal tunnel syndrome 08/08/2020 Vitamin D insufficiency 12/07/2021 Type 2 diabetes mellitus wit h diabetic polyneuropathy, with long-term current use of insulin ([facility] V24, [facility] V28) 01/18/2024 Family History Medical History Relation Name Comments Arthritis Father [place], [place] Arthritis Mother [place] Breast cancer Neg Hx Relation Name Status [...] care for your loved ones. For example, vocational childcare teacher or elderly care for an older adult? [...] is your living situation? 0 08/08/2024 Comments No Sex and Gender Information Value Date Recorded Sex Assigned at Female 08/10/2024 1:14 PM EDT Legal Sex Female 3:24 PM EST Gender Identity Female 08/10/2024 1:14 PM EDT Sexual Orientation Straight 08/10/2024 1: 14 PM EDT Obstetrics History Last Filed Vital Signs Vital Sign Reading Time Taken Comments Blood Pressure 122/50 10/25/2024 11:29 AM EDT Pulse 67 10/25/2024 11:06 AM EDT Temperature 37.3 C (99.2 F) 10/25/2024 11:29 AM EDT Respiratory Rate 14 10/25/2024 11:06 AM EDT Oxygen Saturation 98% 10/25/2024 11:06 AM EDT Inhaled Oxygen Concentration - - Weight 96.7 kg (213 lb 3.2 oz) 10/25/2024 11:06 AM EDT Height 157.5 cm (5' 2 ) 10/25/2024 11:06 AM EDT Body Mass Index 38.99 10/25/2024 11:06 AM EDT Plan of Treatment Upcoming Encounters Date Type Department Care Team (Late st Contact Info) Description 11/26/2024 8:15 AM EDT [facility]ointment [facility] [address] [phone] 11/28/2024 11:15 AM EDT Office Visit Adult Medicine [address] [phone] Ida Virk MD [address] [place] [address] 12/31/2024 9:00 AM EDT Office Visit Vascular Surgery [facility] [address] [place] [phone] Adrien Best MD [address] [place] [phone] Health Maintenance Due Date Last Done Comments Diabetes: Annual Retina Eye Exam 02/26/1966 Breast Cancer Screening 09/29/2022 09/30/19, 04/16/2019, 04/11/2018, Additional history exists COVID-19 Vaccine ( season) 2023 01/05/2023, 09/15/2022, 12/24/2021, Additional history exists Diabetes: Annual Foot Exam 08/28/2024 08/29/2023 Influenza Vaccine (#1) 2024 , 11/29/2023, 11/29/2023, Additional history exists Diabetes: Blood Sugar Control Test (HGBA1C) 02/01/2025 08/01/2024, 04/03/2024, 11/30/2023, Additional history exists Diabetes: Annual Urine Albumin-Creatinine Ratio (uACR) 08/01/2025 08/01/2024, 04/03/2024, 07/26/2023 Medicare Annual Wellness Visit 08/08/2025 08/08/2024 Social Influencers of Health Screening 08/08/2025 08/08/2024 Diabetes: Annual GFR (Glomerular Filtration Rate) 10/16/2025 10/16/2024, 08/01/2024, 11/30/2023 Hypertension/CHF/CAD Annual BMP Blood Test 10/16/2025 10/16/2024, 08/01/2024, 11/30/2023 Falls Risk Assessment 10/25/2025 10/25/2024, 024 DTaP,Tdap,and Td Vaccines (3 - Td or Tdap) 02/16/2028 02/15/2018, 01/29/2008 Colorectal Cancer Screening: Colonoscopy 10/11/2028 Cholesterol Screening (Lipid Panel) 11/29/2028 11/30/2023 Osteoporosis Screening (Bone Density Screening) 12/05/2031 12/04/2021 Hepatitis C Screening Completed 08/07/2014 Zoster Vaccines Completed 01/01/2023, 0803/2020, 10/18/2016 Pneumococcal Vaccine: 50+ Years Completed 01/05/2023, 12/16/2021, 11/26/2013, Additional history exists RSV Immunization Adult Patients Completed 01/05/2023, 01/05/2023 RSV Immunization Patients Under 20 months Aged Out 01/05/2023 No longer eligible based on patient's age to complete this topic Colorectal Cancer Screening: FIT-DNA (Cologuard) Discontinued 08/08/2023 Depression Screening Completed 08/08/2024 HIB Vaccines Aged Out No longer eligi [...] Procedure Name Priority Date/Time Associated Diagnosis Comments CT ANGIO ABDOMEN PELVIS WO AND/OR W CONTRAST STAT 10/17/2024 2:03 PM EDT Splenic artery aneurysm ([facility] V24) CREATININE, SERUM Routine 10/16/2024 11: 03 AM EDT Splenic artery aneurysm ([facility] V24) BUN Routine 10/16/2024 11:03 AM EDT Splenic artery aneurysm ([facility] V24) MICROALBUMIN CREATININE URINE RATIO Routine 08/01/2024 9:01 AM EDT B12 deficiency Vitamin D insufficiency Type 2 diabetes mellitus with diabetic polyneuropathy, with long-term current use of insulin (CMS/HCC V24, CMS/HCC V28) HEMOGLOBIN A1C Routine 08/01/2024 9:01 AM EDT B12 deficiency Vitamin D insufficiency Type 2 diabetes mellitus with diabetic polyneuropathy, with long-term current use of insulin ([facility] V24, [facility] V28) DXA BONE DENSITY STUDY 1+ SITS AXIAL SKEL Routine 12/04/2021 9:22 AM EDT Unspecified menopausal and perimenopausal disorder SCREENING MAMMOGRAPHY BI 2-VIEW BREAST INC CAD Routine 09/29/2021 7:50 AM EDT Encounter for screening mammogram for malignant neoplasm of breast from Last 3 Months or Most Recently Relevant to Health Maintenance Results * CT Angio Abdomen Pelvis wo and/or w Contrast (10/17/2024 2:03 PM EDT) Anatomical Region Laterality Modality Body Computed Tomogra phy 10/17/2024 2:54 PM EDT Impressions 10/17/2024 3:10 PM EDT Impression: Stable 13 mm splenic artery aneurysm. -------- FINAL REPORT -------- Dictated By: Maynor Sanchez Dictated Date: 10/17/2024 14:54 ET Assigned Physician: Maynor Sanchez Reviewed and Electronically Signed By: Maynor Sanchez Signed Date: 10/17/2024 15:10 ET Workstation ID: [id number] Transcribed By: Self Edit Transcribed Date: 10/17/2024 14:54 ET Narrative 10/17/2024 3:[address] angiography abdomen and pelvis INDICATION: spentic artery aneurysm Comparison: None TECHNIQUE: CT angiography of the abdomen and pelvis following the intravenous administration of 100cc Isovue 370. Multiplanar reformats. The examination was performed utilizing dose reduction techniques. Total DLP 2303 Vasculature: Stable calcified 13 mm mid/distal splenic artery aneurysm. Atherosclerotic plaque throughout the aorta and iliac vessels without evidence for large vessel occlusion or critical stenosis. Nonvascular findings: Lung bases: Minimal atelectasis. Spleen: Normal. Pancreas: Normal. Liver: Normal. Gallbladder/biliary: Large gallstone. Adrenals: Normal. Kidneys: Normal. Bowel/mesentery: Visualized bowel unremarkable. Lymph nodes: No pathologically enlarged lymph nodes. Organs: Fibroid uterus. Osseous structures: Degenerative changes of the spine with anterolisthesis of L4 and L5. Spinal stenosis and neuroforaminal narrowing at this level. No acute osseous abnormality. Other: Procedure Note Maynor Sanchez MD - 10/17/2024 CT angiography abdomen and pelvis INDICATION: spentic artery aneurysm Comparison: None TECHNIQUE: CT angiography of the abdomen and pelvis following theintravenous administration of 100cc Isovue 370. Multiplanar reformats. Theexamination was performed utilizing dose reduction techniques. Total [id number] Vasculature: Stable calcified 13 mm mid/distal splenic artery aneurysm.Atherosclerotic plaque throughout the aorta and iliac vessels withoutevidence for large vessel occlusion or critical stenosis. Nonvascular findings: Lung bases: Minimal atelectasis. Spleen: Normal. Pancreas: Normal. Liver: Normal. Gallbladder/biliary: Large gallstone. Adrenals: Normal. Kidneys: Normal. Bowel/mesentery: Visualized bowel unremarkable. Lymph nodes: No pathologically enlarged lymph nodes. Organs: Fibroid uterus. Osseous structures: Degenerative changes of the spine with anterolisthesisof L4 and L5. Spinal stenosis and neuroforaminal narrowing at this level.No acute osseous abnormality. Other: IMPRESSION: Impression: Stable 13 mm splenic artery aneurysm. -------- FINAL REPORT -------- Dictated By: Maynor Sanchez Dictated Date: 10/17/2024 14:54 ET Assigned Physician: Maynor Sanchez Reviewed and Electronically Signed By: Maynor Sanchez Signed Date: 10/17/2024 15:10 ET Workstation ID: [id number] Transcribed By: Self Edit Transcribed Date: 10/17/2024 14:54 ET Ciara Wu MD IMG CT PROCEDURES Roberta l Result * (ABNORMAL) Creatinine (10/16/2024 11:03 AM EDT) Creatinine 1.03 0.50 - 1.10 mg/dL LAB CHEMISTRY METHOD 10/16/2024 12:33 PM EDT [facility] eGFR 59(L) >=60 mL/min/1. 73m2 LAB CHEMISTRY METHOD 10/16/2024 12:33 PM EDT [facility] Comment:Calculation based on the Chronic Kidney Disease Epidemiology Collaboration (CKD-EPI) equation refit without adjustment for race. Blood Venous blood specimen / Unknown Venipuncture / Unknown 10/16/2024 11:03 AM EDT 10/16/2024 11:15 AM EDT Ciara Wu MD LAB BLOOD ORDERABLES F inal Result Performing Organization Address [facility]/State/ZIP Co de Phone Number [facility] [address] [place] [address], [place] [phone] * BUN (10/16/2024 11:03 AM EDT) BUN 23 5 - 25 mg/dL LAB CHEMISTRY METHOD 10/16/2024 12:33 PM EDT [facility] Blood Venous blood specimen / Unknown Venipuncture / Unknown 10/16/2024 11:03 AM EDT 10/16/2024 11:15 AM EDT Ciara Wu MD LAB BLOOD ORDERABLES F inal Result Performing Organization Address [facility]/ZIP Co de Phone Number [facility] [address] [place] [address], [place] [phone] * (ABNORMAL) Microalbumin creatinine urine ratio (08/01/2024 9:01 AM EDT) Creatinine, Urine 159.0 mg/dL LAB CHEMISTRY METHOD 08/01/2024 11:50 AM EDT [facility] Microalb, Ur 35.5(H) 0.0 - 29.0 mg/L LAB CHEMISTRY METHOD 08/01/2024 11:50 AM EDT [facility] Microalb/Crea t Ratio 22 <30 mg/g creat LAB CHEMISTRY METHOD 08/01/2024 11:50 AM EDT [facility] Urine Urine specimen from urethra / Unknown Non-blood Collection / Unknown 08/01/2024 9:01 AM EDT 08/01/2024 9:01 AM EDT us Jessie [facility] LAB URINE ORDERABLES Final Re sult Performing Organization Address [facility] Co de Phone Number [facility] [address] [place] [address], * (ABNORMAL) Hemoglobin A1c (08/01/2024 9:01 AM EDT) Hemoglobin A1C 6.6(H) <6.5 % LAB CHEMISTRY METHOD 08/01/2024 2:47 PM EDT [facility] Mean Bld Glu Estim. 143 mg/dL LAB CHEMISTRY METHOD 08/01/2024 2:47 PM EDT [facility] Blood Venous blood specimen / Unknown Venipuncture / Unknown 08/01/2024 9:01 AM EDT 08/01/2024 9:01 AM EDT us Jessie [facility] LAB BLOOD ORDERABLES Final Re sult Performing Organization Address [facility] de Phone Number [facility] [address] [place] [address], [place] [phone] * DXA BONE DENSITY STUDY 1+ SITS [...] classified as having normal bone density. [facility] Department of Internal Medicine recommends using National [...] beclassified as having normal bone density. The [facility] Department of Internal Medicine recommendsusing National Osteoporosis [...] Recently Relevant to Health Maintenance Insurance MEDICARE [facility] Care Teams End Finder Twisting Department Relationship Specialty Start Date End Date Ida Virk MD [address] [place] [phone] PCP - General Internal Medicine 10/01/19
--- NOTE | 2024-11-21 08:29 | A.OFFVIS_ITS ---
Intake Visit Reasons: Cognitive issue/ after testing Allergies No Known Allergies Allergy (Verified 11/14/24 07:44) HPI Comments Details: The patient is a 69-year-old female presenting with symptoms related to Alzheimer's disease. She has previously undergone an MRI which confirmed changes associated with this condition. Symptoms include forgetfulness and are indicative of Alzheimer's disease. There is no information provided on when these symptoms initially began, but they have been ongoing for some time according to the MRI findings. No exacerbating factors were noted, and currently, her symptoms are stable without indications of heightened anxiety or depression. [facility] Medical History (Updated 11/21/24 @ 08:38 by Eduardo Hebert MD) Multifactorial gait disorder Arthritis Obesity Hypertension Insulin dependent type 1 diabetes mellitus Peripheral neuropathy Review of Systems Const Details: - Neurological: Reports forgetfulness - Psychiatric: Denies significant anxiety or depression Physical Exam Neuro Other: Mental Status: Alert and oriented to person, place, and time. Normal attention. Normal spontaneous speech, fluency, and comprehension. Cranial Nerves: CN II: Visual charlton full to confrontation, visual acuity intact. CN III, IV, : Pupils equal, round, reactive to light and accommodation. Extraocular movements are normal. CN V: Facial sensation is normal. CN VII: Facial movements symmetrical. CN VIII: Hearing intact to bedside conversation is normal. CN IX, X: Palate elevates symmetrically. CN XI: Shoulder shrug and head turn symmetrical. CN XII: Tongue midline without atrophy or fasciculations. Extrapyramidal: Full facial expressions and blinking. No rigidity. Movements are appropriate with no tremor or abnormality. Speech: Normal; no dysarthria or tremor. Assessment & Plan Assessment & Plan (1) Alzheimer dementia: Comment: MRI brain [place] [facility]: Significant medial temp atrophy with mild MVD Code(s): G30.9 - Alzheimer's disease, unspecified; F02.80 - Dementia in other diseases classified elsewhere, unspecified severity, without behavioral disturbance, psychotic disturbance, mood disturbance, and anxiety Category: Medical Qualifiers: Alzheimer's disease onset: early onset Dementia severity: moderate Dementia behavioral or psychological symptom: without behavioral, psychotic, or mood disturbance or anxiety Qualified Code(s): G30.0 - Alzheimer's disease with early onset; F02.B0 - Dementia in other diseases classified elsewhere, moderate, without behavioral disturbance, psychotic disturbance, mood disturbance, and anxiety Plan: I discussed with the patient the diagnosis of Alzheimer's disease based on MRI results and symptomatology. The focus of our management was on addressing forgetfulness with medication. The benefits of symptom management, potential side effects, and the need for monitoring response to the treatment were outlined. As symptoms like anxiety or depression are potential issues in Alzheimer's, we agreed to address them if they develop. We decided on a follow- up plan to assess the effectiveness of the treatment. Plan Impression: Alzheimer disease Rec: Donepezil 5mg daily Medications: New donepezil 5 mg PO DAILY 90 tabs 0RF Coding Level of Care Code Est Pt Level 5 (10597) Diagnoses Moderate early onset Alzheimer's dementia without behavioral disturbance, psychotic disturbance, mood disturbance, or anxiety G30.0; F02.B0 Alzheimer's disease onset: early onset Dementia severity: moderate Dementia behavioral or psychological symptom: without behavioral, psychotic, or mood disturbance or anxiety
== END 2024-11-21 08:44 | disposition home or self-care (01) ==
LOC: HO.HSM 08:01
PROVIDERS: PCP Internal Medicine; Visit Provider Psychiatry & Neurology Neurology
DX: G30.0 Alzheimer's disease with early onset (principal); F02.B0 Dementia in other diseases classified elsewhere, moderate, without behavioral disturbance, psychotic disturbance, mood disturbance, and anxiety
CPT/HCPCS: 99214

== ENCOUNTER → 2024-11-21 08:01 | Outpatient (BNVA) | payer MEDICARE, SELFPAY | PROVIDERS: PCP Internal Medicine; Visit Provider Psychiatry & Neurology Neurology | DX: G30.0 Alzheimer's disease with early onset (principal); F02.B0 Dementia in other diseases classified elsewhere, moderate, without behavioral disturbance, psychotic disturbance, mood disturbance, and anxiety | CPT/HCPCS: 99212 ==

== ENCOUNTER 2025-02-27 07:48 | Outpatient (AMB) | payer MEDICARE, SELFPAY ==
--- NOTE | 2025-02-27 08:06 | MHC.OFFVIS ---
Intake Visit Reasons: 3 mon for dementia Allergies No Known Allergies Allergy (Verified 11/14/24 07:44) HPI Comments Details: 70-year-old female presenting with symptoms related to Alzheimer's disease. She has previously undergone an MRI which confirmed changes associated with this condition. Symptoms include forgetfulness and are indicative of Alzheimer's disease. She is presenting for a follow-up visit for management of back and knee pain. She reports her back and knees are causing significant pain, which she attributes to arthritis and notes it is worse in the winter. One knee has been problematic for a long time, and the other has recently started to get real thick. Due to the pain, she does not get out or walk much. Regarding her neurologic status, the patient reports that her memory is so sorry but that she sleeps well. She lives with her 46-year-old son who assists with cooking. Her son also manages her finances, and her [id number] helps with appointments as he does not drive. She completed high school and previously worked in a [employer]. Her primary care physician is Dr. Mullen. [facility] Medical History (Updated 11/21/24 @ 08:38 by Eduardo Hebert MD) Multifactorial gait disorder Arthritis Obesity Hypertension Insulin dependent type 1 diabetes mellitus Peripheral neuropathy Review of Systems Narrative - Musculoskeletal: Reports severe pain in her back and knees. - Neurological: Reports memory is poor. Denies insomnia. - Psychiatric: Reports her mood is alright. Physical Exam Neuro Other: Mental Status: Alert and oriented to person, place, and time. Normal attention. Normal spontaneous speech, fluency, and comprehension. Cranial Nerves: CN II: Visual charlton full to confrontation, visual acuity intact. CN III, IV, : Pupils equal, round, reactive to light and accommodation. Extraocular movements are normal. CN V: Facial sensation is normal. CN VII: Facial movements symmetrical. CN VIII: Hearing intact to bedside conversation is normal. CN IX, X: Palate elevates symmetrically. CN XI: Shoulder shrug and head turn symmetrical. CN XII: Tongue midline without atrophy or fasciculations. Speech: Normal; no dysarthria or tremor. Results Reviewed Results Reviewed: Laboratory Tests 09/29/24 10:30 Vitamin B12 804 TSH 0.84 Assessment & Plan Assessment & Plan (1) Alzheimer dementia: Comment: MRI brain WO at [facility] [place] in 2024: Significant medial temp atrophy with mild MVD Code(s): G30.9 - Alzheimer's disease, unspecified; F02.80 - Dementia in other diseases classified elsewhere, unspecified severity, without behavioral disturbance, psychotic disturbance, mood disturbance, and anxiety Category: Medical Qualifiers: Alzheimer's disease onset: early onset Dementia behavioral or psychological symptom: without behavioral, psychotic, or mood disturbance or anxiety Dementia severity: moderate Qualified Code(s): G30.0 - Alzheimer's disease with early onset; F02.B0 - Dementia in other diseases classified elsewhere, moderate, without behavioral disturbance, psychotic disturbance, mood disturbance, and anxiety Plan Impression: 1. Mild dementia probably of Alzheimer's type 2. Knee and back arthritis 3. Obesity 4. 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 Donepezil 10 mg a day 2. Regular walking or light exercise to manage arthritis 3. Tried to lose weight I discussed with the patient and her [id number] that her physical issues from arthritis in her knees and back are her most significant problem, impacting her ability to care for herself. I emphasized that movement is the best treatment to prevent her joints from becoming frozen and to reduce pain. I advised she can take Advil or Motrin for severe pain and should discuss her knee pain with her primary care provider. I noted she is mildly affected cognitively and requires assistance. I have increased the dose of one of her medications to the full dose of 10 mg, sent the prescription to her pharmacy, and advised her not to drive. We will have a follow-up appointment in six months. Medications: New donepezil 10 mg PO BEDTIME 90 tabs 1RF Discontinued donepezil Discontinued Reason: Doctor's Order 5 mg PO DAILY 90 tabs 0RF Coding Level of Care Code Est Pt Level 3 (99241) Diagnoses Moderate early onset Alzheimer's dementia without behavioral disturbance, psychotic disturbance, mood disturbance, or anxiety G30.0; F02.B0 Alzheimer's disease onset: early onset Dementia behavioral or psychological symptom: without behavioral, psychotic, or mood disturbance or anxiety Dementia severity: moderate
== END 2025-02-27 08:16 | disposition home or self-care (01) ==
LOC: HO.HSM 07:48
PROVIDERS: PCP Internal Medicine; Visit Provider Psychiatry & Neurology Neurology
DX: G30.0 Alzheimer's disease with early onset (principal); F02.B0 Dementia in other diseases classified elsewhere, moderate, without behavioral disturbance, psychotic disturbance, mood disturbance, and anxiety
CPT/HCPCS: 99213

== ENCOUNTER → 2025-02-27 07:48 | Outpatient (BNVA) | payer MEDICARE, SELFPAY | PROVIDERS: PCP Internal Medicine; Visit Provider Psychiatry & Neurology Neurology | DX: G30.0 Alzheimer's disease with early onset (principal); F02.B0 Dementia in other diseases classified elsewhere, moderate, without behavioral disturbance, psychotic disturbance, mood disturbance, and anxiety; E66.9 Obesity, unspecified; R26.89 Other abnormalities of gait and mobility; M17.0 Bilateral primary osteoarthritis of knee | CPT/HCPCS: 99212 ==